=== PATIENT | male | born 1965 | race Caucasian/White ===

== ENCOUNTER 2020-02-06 09:30 | Inpatient (IN) | payer MEDICAID, SELFPAY ==
[~2020-02-06] VITALS: Ht 165.1 cm; Wt 89.8 kg
--- NOTE | 2020-02-06 09:35 | NUR ---
PATIENT WHEELCHAIR ASSISTED TO BED 1 AT THIS TIME.
[2020-02-06 09:36] VITALS: BP 83/50
[2020-02-06] MEDS ORDERED: NACL 0.9% 1,000 ML IV ONE (10:15)
--- NOTE | 2020-02-06 10:19 | NUR ---
54 Y/O MALE C/O DIZZINESS X20 DAYS + DIARRHEA + COUGH + LOSS OF TASTE/SMELL. PT DENIES ANY SOB/CP. RESP EVEN AND UNLABORED, LUNG SOUNDS CLEAR. PT IS DIAPHORETIC, BUT DENIES ANY FEVER/ CHILLS. SKIN IS MILDLY PALE, IN TACT, MOIST. SCLERA IS SLIGHTLY YELLOW, PERRLA 3MM. PT IS TACHY AND APPEARS TO BE A FIB. AMBULATORY. AAOX4. GCS 15. PMH HTN NKA
--- NOTE | 2020-02-06 10:37 | NUR ---
COVID, RSV, FLU SWAB DONE AT BEDSIDE AND GIVEN TO SOAPING MACHINE BACK TENDER
[2020-02-06 10:45] LABS: HEMATOCRIT 45.6 % (36-52); HEMOGLOBIN 15.3 g/dL (12.0-18.0); MEAN CORPUSCULAR HEMOGLOBIN 29 pg (27-31); MEAN CORPUSCULAR HGB CONC 34 g/dL (33-37); MEAN CORPUSCULAR VOLUME 87.5 fL (80-94); PLATELET COUNT (AUTO) 50 K/uL (140-450); RED BLOOD CELL COUNT(AUTO) 5.21 MIL/uL (4.20-6.10); RED CELL DISTRIBUTION WIDTH 15.1 % (11.6-13.7)
[2020-02-06 10:49] LABS: WHITE BLOOD COUNT (AUTO) 34.5 K/uL (4.8-10.8)
--- NOTE | 2020-02-06 10:49 | NUR ---
WBC 34.5-- Critical value received from lab. Dr Montanez made aware
[2020-02-06 10:52] LABS: RSV NEGATIVE (NEGATIVE)
[2020-02-06 10:57] LABS: PROTHROMBIN TIME 12.9 secs (10.8-13.4)
[2020-02-06 11:01] LABS: ALBUMIN 1.7 g/dL (3.4-5.0); ANION GAP 15.4 (8-16); CARBON DIOXIDE 26.8 mmol/L (21-32); TOTAL BILIRUBIN 4.6 mg/dL (0.0-1.0)
[2020-02-06 11:03] LABS: LACTATE DEHYDROGENASE 215 U/L (85-227); LIPASE 743 U/L (73-393)
[2020-02-06 11:06] LABS: CREATININE 4.3 mg/dL (0.6-1.3); POTASSIUM 2.2 mmol/L (3.5-5.1)
--- NOTE | 2020-02-06 11:09 | NUR ---
Potassium 2.2, Creatinine 4.3, Lactic acid 2.3-- Critical values received from lab. Dr Montanez made aware
[2020-02-06 11:23] LABS: LYMPHOCYTES % (MANUAL) 5 % (20-46); MONOCYTES % (MANUAL) 4 % (5-12)
[2020-02-06] MEDS ORDERED: MAG SULF 2000 MG/WATER PREMIX 50 ML IV ONE (11:30)
[2020-02-06] MEDS ORDERED: KCL 20 MEQ/WATER INJ PREMIX 100 ML IV ONE (11:30)
[2020-02-06] MEDS ORDERED: PIPERACILLIN/TAZOBACTAM 3.375 GM in DEXTROSE 5% 50 ML IV ONE (11:30)
--- NOTE | 2020-02-06 11:34 | NUR ---
Troponin 0.132-- Critical value received from lab. Dr Montanez made aware
[2020-02-06 11:41] LABS: C-REACTIVE PROTEIN QUANT 27.2 mg/dL (0.0-0.9)
[2020-02-06] MEDS ORDERED: NITROGLYCERIN 0.4 MG TAB SL PRN (11:45)
[2020-02-06] MEDS ORDERED: ALBUTEROL HFA MDI 90 MCG/ACTUATION 8 GM INH PRN (11:45)
[2020-02-06] MEDS ORDERED: lisinopriL 5 MG TAB PO SCH (11:45)
[2020-02-06] MEDS ORDERED: NACL 0.9% 2,000 ML IV SCH (11:45)
[2020-02-06] MEDS ORDERED: ZOLPIDEM 5 MG TAB PO PRN (11:45)
[2020-02-06] MEDS ORDERED: DOCUSATE 100 MG/10 ML UDC PO PRN (11:45)
[2020-02-06] MEDS ORDERED: MORPHINE SULFATE 2 MG/ML SYR IVP PRN (11:45)
[2020-02-06] MEDS ORDERED: ONDANSETRON 4 MG/2 ML VIAL IM/IVP PRN (11:45)
[2020-02-06] MEDS ORDERED: MAG SULF 2000 MG/WATER PREMIX 50 ML IV PRN (11:45)
[2020-02-06] MEDS ORDERED: LORazepam 2 MG/ML VIAL IM/IVP PRN (11:45)
[2020-02-06] MEDS ORDERED: PIPERACILLIN/TAZOBACTAM 3.375 GM VIAL IV ONE (11:55)
--- NOTE | 2020-02-06 12:07 | NUR ---
AAOX4, PT LETHARGIC BUT EASILY AROUSABLE. DIAPHORETIC. VSS.
[2020-02-06 12:27] LABS: MAGNESIUM 2.7 mg/dL (1.8-2.4); PHOSPHORUS 1.3 mg/dL (2.5-4.9); THYROID STIMULATING HORMONE 0.95 uIU/mL (0.34-3.74)
[2020-02-06 12:34] LABS: CHOL/HDL RATIO 12.8 (1-4.5)
[2020-02-06 12:47] LABS: APPEARANCE,URINE CLOUDY (CLEAR); BILIRUBIN,URINE 3+ (NEGATIVE); BLOOD, URINE TRACE-L (NEGATIVE); COLOR,URINE BROWN (YELLOW); LEUKOCYTE ESTERASE ,URINE TRACE (NEGATIVE); NITRITE, URINE POSITIVE (NEGATIVE); UGLUCOSE TRACE (NEGATIVE)
[2020-02-06] MEDS ORDERED: KCL 20 MEQ/WATER INJ PREMIX 200 ML IV SCH (13:00)
[2020-02-06 13:10] VITALS: BP 110/79
--- NOTE | 2020-02-06 13:10 | NUR ---
Received report from Jesus BEY. 54/M arrives to ICU from home, with chief complaint of dizziness/weakness/fatigue, loss of taste and smell, diarrhea, SOB, and cough, x10 days. Pt denies fever/chills, CP or any pain at this time. Pt awake and alert, skin moist/diaphoretic and warm, ambulatory with standby/1person assist, Spo2 98% on 4L NC, RR 28 even and tachypnic with no labored breathing. Lung sounds with mild wheeze anteriorly. BP 110/79, HR 110, A.fib on monitor, S1S2 present, no BLE edema.
[2020-02-06 13:11] LABS: BARBITURATE, URINE NEGATIVE ng/ml (NEG <=200); BENZODIAZEPINE, URINE NEGATIVE ng/mL (NEG <=200); CANNABINOID, URINE NEGATIVE ng/mL (NEG <=50); COCAINE, URINE NEGATIVE ng/mL (NEG <=300); OPIATE, URINE NEGATIVE ng/mL (NEG <=2000); PHENCYCLIDINE SCREEN,URINE NEGATIVE ng/mL (NEG <=25)
--- NOTE | 2020-02-06 13:17 | NUR ---
Patient will be admitted to care of MAGALY. Admited to ICU. Will go to room 7. Belongings list completed. Report to YVONNE BEY.
[2020-02-06 13:35] LABS: RBC,URINE 0-5 /HPF (0-5)
[2020-02-06 13:36] LABS: HYALINE CASTS, URINE 0-10 /LPF (None Seen)
--- NOTE | 2020-02-06 13:41 | NUR ---
Called Dr Bruno, gave report, notified to consult.
[2020-02-06] MEDS: NACL 0.9% 1,000 ML IV SCH ×2 (13:58→22:00)
[2020-02-06] MEDS: ASPIRIN 81 MG TAB.CHEW PO SCH (13:58)
[2020-02-06] MEDS: METOPROLOL 25 MG TAB PO SCH ×2 (13:58→21:00)
[2020-02-06 16:00] VITALS: BP 111/57
--- NOTE | 2020-02-06 16:30 | NUR ---
Pt laying in bed, pt able to turn self on R lateral position, able to move all extremities. Pt sleeping, arousable to name, awake and alert, no facial grimacing/restlessness, denies any pain. Reports tolerable SOB with no acute change, Spo2 97% on 2L NC, RR 16 even and unlabored, skin dry. A.fib on monitor, HR 99-110. All needs met.
--- NOTE | 2020-02-06 17:59 | NUR ---
Called report to associate professor of pathology, pt to be transferred to 124A Addendum: 02/06/20 at 0334 by Demetri Best RN entered in error
[2020-02-06 18:00] VITALS: BP 102/53
--- NOTE | 2020-02-06 18:52 | NUR ---
Dr Bruno at bedside for consult. Per Dr Bruno, verbal order to discontinue scheduled lisinopril PO.
[2020-02-06 19:11] LABS: CREATININE 4.9 mg/dL (0.6-1.3)
--- NOTE | 2020-02-06 19:35 | NUR ---
[facility] AWAKE AND ALERT EYES PERRLA 3 MM, PT ON 2L NASAL CANNULA, LUNG SOUNDS CLEAR, PT COMPLAINING OF MODERATE PAIN, PULSES PALPABLE UPPER AND LOWER EXTREMITIES, BOWEL SOUNDS ACTIVE, PT ABLE TO MOVE AND TURN SELF IN BED, NO SIGNS OF DISTRESS SAFETY PROTOCOLS IN PLACE WILL CONTINUE TO MONITOR PT
[2020-02-06 20:00] VITALS: BP 107/69
[2020-02-06] MEDS: ZINC SULF 220 MG CAP PO SCH (20:31)
[2020-02-06] MEDS: ATORVASTATIN 20 MG TAB PO SCH (20:31)
[2020-02-06] MEDS: HYDROcodone/APAP 5/325 MG 1 TAB TAB PO PRN (20:32)
[2020-02-06] MEDS: PIPERACILLIN/TAZOBACTAM 2.25 GM in DEXTROSE 5% 50 ML IV SCH (20:49)
[2020-02-06] MEDS ORDERED: LOVENOX 1MG/KG Q12H SUBQ SCH (21:00)
[2020-02-06] MEDS ORDERED: MECLIZINE 25 MG TAB PO PRN (21:55)
[2020-02-06 22:00] VITALS: BP 97/51
[2020-02-07] VITALS (12 sets, daily range): BP systolic 96–118; BP diastolic 50–79
--- NOTE | 2020-02-07 02:00 | NUR ---
PT RESTING IN BED NO SIGNS OF DISTRESS NOTED WILL CONTINUE TO MONITOR PT
[2020-02-07] MEDS: PIPERACILLIN/TAZOBACTAM 2.25 GM in DEXTROSE 5% 50 ML IV SCH ×2 (05:45→13:34)
--- NOTE | 2020-02-07 05:45 | NUR ---
PT TAKEN TO XRAY FOR CT OF HEAD, NO EVENTS OCCURRED, NO SIGN OF DISTRESS WILL CONTINUE TO MONITOR
[2020-02-07 06:17] LABS: HEPATITIS A ANTIBODY IGM Negative (Negative); HEPATITIS B CORE AB TOTAL Negative (Negative); HEPATITIS B SURFACE ANTIBODY Non Reactive (.); HEPATITIS B SURFACE ANTIGEN Negative (Negative)
[2020-02-07 06:20] LABS: RED BLOOD CELL COUNT(AUTO) 4.94 MIL/uL (4.20-6.10)
[2020-02-07 06:50] LABS: ALBUMIN 1.4 g/dL (3.4-5.0); ANION GAP 18.9 (8-16); MAGNESIUM 3.4 mg/dL (1.8-2.4); PHOSPHORUS 1.7 mg/dL (2.5-4.9); TOTAL BILIRUBIN 3.6 mg/dL (0.0-1.0)
[2020-02-07 07:09] LABS: HEMATOCRIT 44.3 % (36-52); HEMOGLOBIN 14.6 g/dL (12.0-18.0); MEAN CORPUSCULAR HEMOGLOBIN 29 pg (27-31); MEAN CORPUSCULAR HGB CONC 33 g/dL (33-37); MEAN CORPUSCULAR VOLUME 89.7 fL (80-94); PLATELET COUNT (AUTO) 62 K/uL (140-450); RED CELL DISTRIBUTION WIDTH 15.9 % (11.6-13.7)
[2020-02-07 07:12] LABS: T4 (THYROXINE) 4.6 ug/dL (4.5-12.0)
--- NOTE | 2020-02-07 07:30 | NUR ---
BEDSIDE REPORT RECEIVED FROM MEAT DRESSER NURSE, PT RESTING QUIETLY, PT OPENS EYES TO VOICE, ALERT, MONGOLIAN SPEAKING, MOVES ALL EXT, BREATH SOUNDS CLEAR, RESP EVEN UNLABORED, SKIN WARM DRY COLOR WNL, PT DENIES PAIN OR DISCOMFORT, ABD SOFT, NON DISTENDED, [place] IN PLACE, SMALL AMT OF DARK URINE IN TUBING ONLY, IVF NS AT 100ML/HR, IV SITES WNL. CALL LUI WITHIN REACH, SIDE RAIL UP, BED LOCKED IN LOW POSITION, VITALS STABLE ON MONIOR
--- NOTE | 2020-02-07 07:42 | NUR ---
DR HALL AT BEDSIDE, NOTIFIED OF LOW K 2.9, BUN/BALLOON DESIGN PRINTER 77/5.5, NON SUSTAINED V-TACH.
[2020-02-07] MEDS: NACL 0.9% 1,000 ML IV SCH ×2 (07:43→17:49)
[2020-02-07 07:47] LABS: CREATININE 5.5 mg/dL (0.6-1.3); POTASSIUM 2.9 mmol/L (3.5-5.1)
[2020-02-07] MEDS: ASPIRIN 81 MG TAB.CHEW PO SCH (08:35)
[2020-02-07] MEDS: ZINC SULF 220 MG CAP PO SCH ×2 (08:35→21:36)
[2020-02-07] MEDS: VITAMIN D 400 IU TAB PO SCH (08:36)
[2020-02-07] MEDS: POTASSIUM CHLORIDE 10 MEQ TABER PO PRN (08:36)
[2020-02-07] MEDS: METOPROLOL 25 MG TAB PO SCH ×2 (08:36→21:15)
[2020-02-07] MEDS: ASCORBIC ACID 500 MG TAB PO SCH (08:36)
[2020-02-07 08:53] LABS: WHITE BLOOD COUNT (AUTO) 31.9 K/uL (4.8-10.8)
[2020-02-07 08:54] LABS: EOSINOPHILS % (MANUAL) 3 % (0-4); LYMPHOCYTES % (MANUAL) 9 % (20-46); MONOCYTES % (MANUAL) 5 % (5-12)
--- NOTE | 2020-02-07 08:58 | NUR ---
PATIENT HAS BEEN SCREENED AND CATEGORIZED HIGH NUTRITION RISK. PATIENT WILL BE SEEN WITHIN 1-2 DAYS OF ADMISSION. 02/07/20-02/08/[address]
[2020-02-07] MEDS: HYDROcodone/APAP 5/325 MG 1 TAB TAB PO PRN (09:16)
--- NOTE | 2020-02-07 09:23 | NUR ---
MEDICATED WITH NORCO FOR RIGHT LEG PAIN 02/10, PHYSICAL THERAPY AT BEDSIDE
--- NOTE | 2020-02-07 09:30 | NUR ---
0930 ULTRASOUND AT BEDSIDE.
[2020-02-07] MEDS ORDERED: POTASSIUM CHLORIDE 40 MEQ, LIDOCAINE MPF 1% 25 MG in NACL 0.9% 250 ML IV SCH (10:00)
--- NOTE | 2020-02-07 10:53 | NUR ---
ARMAMENT INSTALLER NOTE: Patient's Orientation Unable To Assess Information Provided By AMY VILLELA Comments SW WAS UNABLE TO MEET PATIENT AT BEDSIDE DUE TO MEDICAL CONDITION. Trial Management Associate, Realtionship and Phone Number AMY VILLELA [phone] Healthcare Power of Drafting Technician No Does Patient Have a POLST No Identifying Problems No Social Work Triggers Is A Social Work Consult Needed No Mandate Report Filed No Explanation Of Identifying Problems PATIENT IS A 54-YEAR-OLD MALE ADMITTED FOR COVID R/O AND SEPTIC SHOCK. PATIENT HAS PMHX OF HTN AND HEPATITIS. Admitted From Home Pre-Admission Level Of Functioning Status Independent/Ambulatory Prior Resources/Services Used In Last 12 Months No Prior Resources Used Prior DME No Prior DME Used Living Situation Lives With Family House Patient Had Caregiver No Home Support No Caregiver Issues Financial Issues No Known Financial Issue Referral To The Financial Counselor Needed No Factors/Needs No D/C Needs Identified Pt/Rep Participated In Discharge Plan Yes Patient/Family Agress With Discharge Plan Yes Discharge Plan Comments TENTATIVE DISCHARGE PLAN IS FOR PATIENT TO RETURN HOME. DC Plan Status Initiated
[2020-02-07 11:48] LABS: CHLORIDE,URINE RANDOM 41 mmol/L (110-250); CREATININE,URINE RANDOM 195 mg/dL (30-125); URINE SODIUM, RANDOM 39 mmol/l (40-220)
--- NOTE | 2020-02-07 11:51 | NUR ---
PT SLEEPING QUIETLY IN NO ACUTE DISTRESS, PT CONTINUES ON 2L NC O2.
--- NOTE | 2020-02-07 14:56 | NUR ---
DISCHARGE PLANNING: THIS IS A 54 Y/O MALE PATIENT FROM HOME, WHO CAME IN DUE TO SOB, WEAKNESS AND DIZZINESS. PAST MEDICAL HISTORY INCLUDE HTN, HEP A/B/C. INITIAL DIAGNOSIS OF SEPTIC SHOCK AND R/O COVID. COVID TEST PENDING. CURRENT LABS WBC 31.9, H/H 14.6/44.3, NA/K 138/2.9, BUN/CREA 77/5.5, LACTIC ACID 1.0, TROP 0.070. ON O2 AT 2 LPM/NC, O2 SAT 95%. ON METRONIDAZOLE, CEFEPIME. ID, CARDIO, PULMO AND NEPHRO CONSULTS IN PLACE. DC PLAN BACK TO HOME ONCE STABLE. Addendum: 02/08/20 at 1625 by Eusebia Porter CM S/P RIJ DIALYSIS CATHETER PLACEMENT WITH DR. NAPIER. HAD X4 LOOSE BM OVERNIGHT, STOOL SAMPLE SENT FOR C DIFF AND SHIGA TOXIN RESULTS CAME BACK NEGATIVE. ON ROOM AIR Addendum: 02/12/20 at 1515 by Harmony Baires CM DC PLANNING: CALLED DR DAVENPORT DISCUSSED IF PATIENT NEED OUT PATIENT DIALYSIS PER DR DAVENPORT TO SCHEDULE OUT PATIENT HD AT [facility] AT [address] PHONE NUMBER [phone] FAX [phone] WILL FAX ALL PAPER WORK. CM TO FOLLOW. Addendum: 02/12/20 at 1529 by Martine Herr CM FAXED PATIENTS CLINICALS TO [facility] [phone] FAX [phone] WILL FOLLOW UP Addendum: 02/13/20 at 1147 by Harmony Baires CM DC PLANNING: CALLED [facility] [phone] SPOKE WITH WILLIAN STATED RECEIVED PT'S PAPERWORK YESTERDAY GAVE IT TO THE PHLEBOTOMY SERVICES TECHNICIAN FOR OUT PT DIALYSIS WILL REVIEW AND CALL BACK CM TO FOLLOW Addendum: 02/13/20 at 1458 by Harmony Baires CM DC PLANNING: CALLED [facility] AT [facility] OUT PATIENT DIALYSIS CENTER SPOKE WITH WILLIAN PT HAS SCHEDULE CHAIR TIME WILL BE 4 AM BUT PLS CALL WILLIAN AT [phone] PRIOR TO DISCHARGE, FOR A FIST TIME VISIT THERE WILL BE DIFFERENT TIME. CM TO FOLLOW Addendum: 02/14/20 at 1507 by Harmony Baires CM DC PLANNING: WBC ELEVATED TO 25.3 TODAY ON VANCOMYCIN. DIALYSIS CATHETER REPLACE BY DR POMPA , OUT PATIENT DIALYSIS SET UP FOR CHAIR TIME AT 4AM AT [facility]. DC PLAN TO GO HOME WHEN STABLE CM TO FOLLOW. Addendum: 02/15/20 at 1142 by Martine Herr CM CONTACTED [facility] [phone] SHE WAS NOT IN AT THE MOMENT SPOKE TO NOEMI TO NOTIFY THAT PATIENT IS NOT READY FOR DISCHARGE YET. ASKED NOEMI IF HE COULD HAVE T[facility] CALL US BACK. Addendum: 02/15/20 at 1534 by Harmony Baires CM DC PLANNING: CALLED WILLIAN AT [facility] [phone] NOTIFIED HER PATIENT IS NOT DISCHARGING TODAY , HE MIGHT BE DISCHARGE ON THE WEEKEND. PER [facility] IS CLOSED TUE,TUESDAY TO CALL TUESDAY. CM TO FOLLOW Addendum: 02/18/20 at 1110 by Martine Herr CM CONTACTED TAMEKA AT [facility] [phone] TO NOTIFY HER PATIENT WILL BE DISCHARGING TODAY. PATIENT HAS DIALYSIS M-W-F AT 4:00 AM. SHE IS GOING TO CONTACT ME BACK WITHIN 10 MINS BECAUSE SHE WANTS TO CLARIFY WITH HER ALLIGATOR HUNTER IF THEY WANT THIS PATIENT TO COME IN LATER ON THE FIRST DAY. Addendum: 02/18/20 at 1358 by Martine Herr CM FOLLOWED UP WITH WILLIAN AT [facility] SHE WANTS THE PATIENT TO COME IN ON TUESDAY AT 8:00AM. NOTIFIED PATIENTS AMY REYES [phone]. AMY STATED THAT THEY WILL BE HERE AROUND 3:00 PM TO VOICE OVER ARTIST THE PATIENT. NOTIFIED MAIDA SANCHEZ
--- NOTE | 2020-02-07 15:00 | NUR ---
DR NIETO AT BEDSIDE
--- NOTE | 2020-02-07 15:20 | NUR ---
PT STARTED ORAL CONTRAST FOR CT ABD/PELVIS, ACLS SPECIALIST MADE AWARE
[2020-02-07] MEDS: CEFEPIME 1,000 MG in DEXTROSE 5% 50 ML IV SCH (16:00)
--- NOTE | 2020-02-07 18:15 | NUR ---
PT PLACED ON BEDPAN, LARGE LOOSE STOOL, MISSED BEDPAN, ALL OVER THE CHUX, PERICARE DONE, BEDBATH GIVEN, STOOL SAMPLE COLLECTED SENT TO LAB
--- NOTE | 2020-02-07 19:35 | NUR ---
RECEIVED PT FROM DAYSHIFT RN, PT AWAKE RESTING IN BED EYES PERRLA 3MM, LUNG SOUNDS CLEAR, PULSES PALPABLE UPPER AND LOWER EXTREMITIES, BOWEL SOUNDS ACTIVE, PT FOLLOWS COMMANDS, SLIGHT HESITATION ANSWERING QUESTIONS SUCH DATE OF , NO SIGNS OF DISTRESS WILL CONTINUE TO MONITOR PT
--- NOTE | 2020-02-07 21:30 | NUR ---
PT HAD 1 LIQUID BM DARK BROWN COLOR, ASSISTED PT TO COMMODE AND BACK TO BED PT NO RESTING IN BED, WILL CONTINUE TO MONITOR PT
[2020-02-07] MEDS: metroNIDAZOLE 500 MG/NS PREMIX 100 ML IV SCH (21:36)
[2020-02-07] MEDS: ATORVASTATIN 20 MG TAB PO SCH (21:36)
[2020-02-07 21:51] LABS: ANION GAP 19.8 (8-16); CARBON DIOXIDE 20.1 mmol/L (21-32); POTASSIUM 3.9 mmol/L (3.5-5.1)
[2020-02-07 21:54] LABS: CREATININE 6.5 mg/dL (0.6-1.3)
--- NOTE | 2020-02-07 22:43 | NUR ---
SPOKE WITH DR. ALLISON INFORMED OF ELEVATED BUN 107 AND CREATINE 6.5,DR. POMPA ON CONSULT FOR PT INFORMED TO PG DR. POMPA AND INFORM OF NEED FOR INSERTION OF DIALYSIS PORT, SPOKE WITH DR. POMPA AND INFORMED HIM PT NEEDS CATHETER IN PLACE FOR DIALYSIS
[2020-02-08] VITALS (12 sets, daily range): BP systolic 93–139; BP diastolic 39–88
--- NOTE | 2020-02-08 03:45 | NUR ---
PT HAD 1 LIQUID BROWN BM ASSIST TO COMMODE NO SIGNS OF DISTRESS WILL CONTINUE TO MONITOR PT
[2020-02-08] MEDS: NACL 0.9% 1,000 ML IV SCH ×2 (04:00→13:43)
[2020-02-08 06:39] LABS: HEMATOCRIT 43.2 % (36-52); HEMOGLOBIN 14.4 g/dL (12.0-18.0); MEAN CORPUSCULAR HEMOGLOBIN 30 pg (27-31); MEAN CORPUSCULAR HGB CONC 33 g/dL (33-37); MEAN CORPUSCULAR VOLUME 88.9 fL (80-94); PLATELET COUNT (AUTO) 58 K/uL (140-450); RED BLOOD CELL COUNT(AUTO) 4.86 MIL/uL (4.20-6.10); RED CELL DISTRIBUTION WIDTH 16.1 % (11.6-13.7)
--- NOTE | 2020-02-08 07:15 | NUR ---
SKYE CATH INSERTED BY DR. NAPIER.
--- NOTE | 2020-02-08 07:45 | NUR ---
CHEST X-RAY DONE
[2020-02-08 07:49] LABS: ALBUMIN 1.5 g/dL (3.4-5.0); ANION GAP 20.2 (8-16); CARBON DIOXIDE 18.6 mmol/L (21-32); MAGNESIUM 3.8 mg/dL (1.8-2.4); PHOSPHORUS 2.6 mg/dL (2.5-4.9); POTASSIUM 3.8 mmol/L (3.5-5.1); TOTAL BILIRUBIN 1.4 mg/dL (0.0-1.0)
[2020-02-08 07:56] LABS: WHITE BLOOD COUNT (AUTO) 27.1 K/uL (4.8-10.8)
[2020-02-08 07:57] LABS: LYMPHOCYTES % (MANUAL) 5 % (20-46); MONOCYTES % (MANUAL) 5 % (5-12)
[2020-02-08] MEDS: METOPROLOL 25 MG TAB PO SCH ×2 (08:36→20:24)
[2020-02-08] MEDS: ZINC SULF 220 MG CAP PO SCH ×2 (08:37→20:23)
[2020-02-08] MEDS: ASCORBIC ACID 500 MG TAB PO SCH (08:37)
[2020-02-08] MEDS: ASPIRIN 81 MG TAB.CHEW PO SCH (08:37)
[2020-02-08] MEDS: metroNIDAZOLE 500 MG/NS PREMIX 100 ML IV SCH ×2 (08:38→20:23)
[2020-02-08] MEDS: VITAMIN D 400 IU TAB PO SCH (09:00)
[2020-02-08 09:04] LABS: CREATININE 7.1 mg/dL (0.6-1.3)
--- NOTE | 2020-02-08 10:00 | NUR ---
DR. NAPIER SAID SKYE BRIDGES IS OK TO USE.
--- NOTE | 2020-02-08 12:00 | NUR ---
SEEN BY DR ALEXANDER AT BED SIDE , ORDER RECEIVED.
--- NOTE | 2020-02-08 12:00 | NUR ---
OBTAIN PICC LINE CONSENT FROM LINWOOD WERNER [phone] BYINTERPRETER #[id number].
[2020-02-08] MEDS: ACETAMINOPHEN 325 MG TAB PO PRN (12:41)
--- NOTE | 2020-02-08 14:00 | NUR ---
OBTAIN CONTRASS ADM. FROM SISTER LINWOOD [[phone]] BY HIGH SCHOOL COACH #[id number].
[2020-02-08] MEDS: CEFEPIME 1,000 MG in DEXTROSE 5% 50 ML IV SCH (15:27)
--- NOTE | 2020-02-08 16:01 | NUR ---
02/08/20 RD INITIAL ASSESSMENT COMPLETED PLEASE REFER TO NUTRITION ASSESSMENT UNDER CARE ACTIVITY FOR ESTIMATED NUTRITIONAL NEEDS. 1. CONTINUE NPO MEDICALLY NECESSARY 2. ADVANCE TO [facility] 60GM WHEN MEDICALLY STABLE 3. RD TO FOLLOW-UP 2-3 DAYS, HIGH RISK ROLAN VILLAGRAN, RD
--- NOTE | 2020-02-08 16:30 | NUR ---
PATIEN SLEEPING QUIET MOST OF THE TIME.DENIED PAIN.
--- NOTE | 2020-02-08 18:00 | NUR ---
STILL SLEEPY NO DISTRESS NOTED.
--- NOTE | 2020-02-08 19:30 | NUR ---
REPORT RECEIVED FROM AM SHIFT RN. PT IS CONFUSED. A&OX1. ON ROOM AIR. O2 SATURATION 96%. AFIB ON MONITOR. IV SITE RIJ SKYE CATH W/ PIGTAIL RUNNING AT NS 100ML/HR, INTACT, PATENT, GOOD BLOOD RETURN. SKIN INTACT, WARM AND DRY. [place] CATHETER IN PLACE. SAFETY PRECAUTIONS IN PLACE. WILL CONTINUE TO MONITOR.
--- NOTE | 2020-02-08 19:30 | NUR ---
CONDITION STABLE REPORT GIVE TO MONTSERRAT BEY,
[2020-02-08] MEDS: ATORVASTATIN 20 MG TAB PO SCH (20:23)
[2020-02-08] MEDS ORDERED: CRUSHER, PILL MC ONE (20:25)
--- NOTE | 2020-02-08 21:15 | NUR ---
PT HAD 1 BM, SAT ON COMMODE.
--- NOTE | 2020-02-08 23:05 | NUR ---
PT RESTING IN BED, EYES CLOSED, RESPIRATIONS EVEN AND UNLABORED. SAFETY PRECAUTIONS IN PLACE. WILL CONTINUE TO MONITOR.
[2020-02-09] VITALS (13 sets, daily range): BP systolic 115–145; BP diastolic 65–94
--- NOTE | 2020-02-09 01:20 | NUR ---
PT RESTING IN BED, RESPIRATIONS EVEN AND UNLABORED. CHEST RISE IS SYMMETRICAL. VITAL SIGNS STABLE. SAFETY PRECAUTIONS IN PLACE. WILL CONTINUE TO MONITOR.
[2020-02-09] MEDS: NACL 0.9% 1,000 ML IV SCH ×2 (01:26→09:43)
--- NOTE | 2020-02-09 03:50 | NUR ---
PT RESTING IN BED, EYES CLOSED, RESPIRATIONS EVEN AND UNLABORED. HOB 30 DEGREES. BED LOCKED IN LOWEST POSITION. SAFETY PRECAUTIONS IN PLACE. WILL CONTINUE TO MONITOR.
--- NOTE | 2020-02-09 05:50 | NUR ---
PT HAD 1 LOOSE BM. PT CLEANED. WILL CONTINUE TO MONITOR.
--- NOTE | 2020-02-09 06:23 | NUR ---
FOLLOW UP CALL MADE TO PICCLINE NURSE, LEAVE MESSAGE
--- NOTE | 2020-02-09 07:26 | NUR ---
REPORT GIVEN TO STACIE BEY FOR CONTINUITY OF CARE
[2020-02-09 07:50] LABS: BASOPHILS % (AUTO) 0.1 % (0.0-2.0); EOSINOPHILS # (AUTO) 0.1 K/uL (0-0.4); EOSINOPHILS % (AUTO) 0.3 % (0.0-4.0); HEMATOCRIT 45.4 % (36-52); HEMOGLOBIN 15.1 g/dL (12.0-18.0); LYMPHOCYTES % (AUTO) 3.5 % (20.5-51.1); MEAN CORPUSCULAR HEMOGLOBIN 30 pg (27-31); MEAN CORPUSCULAR HGB CONC 33 g/dL (33-37); MEAN CORPUSCULAR VOLUME 89.1 fL (80-94); MONOCYTES # (AUTO) 0.6 K/uL (0.8-1.0); NEUTROPHILS # (AUTO) 26.1 K/uL (1.8-7.7); NEUTROPHILS % (AUTO) 94.1 % (42.2-75.2); PLATELET COUNT (AUTO) 31 K/uL (140-450)
[2020-02-09] MEDS: ASPIRIN 81 MG TAB.CHEW PO SCH (07:58)
--- NOTE | 2020-02-09 08:00 | NUR ---
REPORT RECEIVED FROM PM SHIFT RN. PT ZIMBABWEAN SPEAKING. CUSTOMER SUPPORT CONSULTANT USED. PT ALERT TO SELF AND BIRTHDAY. PT IS AWARE THAT HE IS IN HOSPITAL. PT ON ROOM AIR. O2 SATURATION 96%. AFIB ON MONITOR. IV SITE RIJ SKYE CATH W/ PIGTAIL RUNNING AT NS 100ML/HR, INTACT, PATENT, GOOD BLOOD RETURN. SKIN INTACT, WARM AND DRY. [place] CATHETER IN PLACE, YELLOW URINE. PT NPO. SAFETY PRECAUTIONS IN PLACE. COVID RESULT NOT DETECTED. PT PENDING PICC LINE PLACEMENT.
[2020-02-09] MEDS: metroNIDAZOLE 500 MG/NS PREMIX 100 ML IV SCH ×2 (08:10→20:40)
--- NOTE | 2020-02-09 08:15 | NUR ---
HOLDING HEPARIN AND ASPIRIN AT THIS TIME DUE TO PTS LOW PLATELET COUNT
[2020-02-09 08:34] LABS: MAGNESIUM 3.6 mg/dL (1.8-2.4)
[2020-02-09 08:36] LABS: WHITE BLOOD COUNT (AUTO) 27.8 K/uL (4.8-10.8)
--- NOTE | 2020-02-09 08:40 | NUR ---
USED SPECIAL POPULATION PARAPROFESSIONAL [id number] TO ADMINISTER MORNING MEDICATIONS. PT DENIES PAIN. PT HAS NO FURTHER QUESTIONS AT THIS TIME.
[2020-02-09] MEDS: ZINC SULF 220 MG CAP PO SCH ×2 (08:45→20:41)
[2020-02-09] MEDS: METOPROLOL 25 MG TAB PO SCH ×2 (08:45→20:41)
[2020-02-09] MEDS: VITAMIN D 400 IU TAB PO SCH (08:45)
[2020-02-09] MEDS: ASCORBIC ACID 500 MG TAB PO SCH (08:45)
--- NOTE | 2020-02-09 09:00 | NUR ---
DR DOE SIGNED CONSENT FOR CT WITH CONTRAST, OBTAINED CONSENT FROM AMY MORENO VIA TELEPHONE-2 NURSE WITNESSED
[2020-02-09 09:59] LABS: ALBUMIN 1.7 g/dL (3.4-5.0); ANION GAP 24.9 (8-16); CARBON DIOXIDE 16.7 mmol/L (21-32); MAGNESIUM 3.7 mg/dL (1.8-2.4); POTASSIUM 3.6 mmol/L (3.5-5.1); TOTAL BILIRUBIN 1.1 mg/dL (0.0-1.0)
[2020-02-09 10:00] LABS: CREATININE 8.3 mg/dL (0.6-1.3)
--- NOTE | 2020-02-09 10:05 | NUR ---
PAGED DR LAWRENCE REGARDING CRITICAL LABS BUN 169 AND CR 8.3
--- NOTE | 2020-02-09 10:37 | NUR ---
TELEPHONE ORDER FROM DR MCINTYRE TO CONTINUE WITH PICC LINE PLACEMENT FOR PT DESPITE BUN,CR, AND PLATELET COUNT
--- NOTE | 2020-02-09 12:15 | NUR ---
SANDRA RN AT BEDSIDE FOR PICC LINE PLACEMENT, TIME OUT CALLED
--- NOTE | 2020-02-09 12:25 | NUR ---
RADIOLOGY AT BEDSIDE TO CONFIRM PICC PLACEMENT
--- NOTE | 2020-02-09 15:00 | NUR ---
PT ASSISTED TO BEDSIDE COMMODE. PT HAS DARK COLORED DIARRHEA, BROWN EDINSON BLACK
--- NOTE | 2020-02-09 15:42 | NUR ---
ZANA RN WITH PT AT CT ANGIO SCAN
--- NOTE | 2020-02-09 16:33 | NUR ---
CASE ASSISTANT AT BEDSIDE, PT MOVED TO BED 5
--- NOTE | 2020-02-09 16:59 | NUR ---
VERBAL ORDER TO HOLD NS
[2020-02-09] MEDS: CEFEPIME 1,000 MG in DEXTROSE 5% 50 ML IV SCH (17:00)
--- NOTE | 2020-02-09 18:31 | NUR ---
2L OUPUT FROM DIALYSIS. PER QUALITY ASSURANCE ADVISOR-PTS HEMODIALYSIS SITE IS NOT WORKING PROPERLY. DR MCINTYRE MADE AWARE BY QUALITY ASSURANCE ADVISOR
--- NOTE | 2020-02-09 19:30 | NUR ---
REPORT RECEIVED FROM AM SHIFT RN. PT A&OX4. PICC LINE RADHA, INFUSING NS 5 ML/HR AND RIJ SKYE CATH W/ PIGTAIL, SALINE LOCKED. AFIB ON MONITOR. ON ROOM AIR. SKIN INTACT, WARM AND DRY. SAFETY PRECAUTIONS IN PLACE. CALL LIGHT WITHIN REACH. WILL CONTINUE TO MONITOR.
[2020-02-09] MEDS: ATORVASTATIN 20 MG TAB PO SCH (20:40)
--- NOTE | 2020-02-09 21:00 | NUR ---
PT HAD 1 LOOSE BOWEL MOVEMENT. PT CLEANED.
--- NOTE | 2020-02-09 22:30 | NUR ---
PT TRANSFERRED TO TELEMETRY 112B VIA [facility]. REPORT GIVEN TO PAUL BEY FOR CONTINUITY OF CARE.
--- NOTE | 2020-02-09 22:30 | NUR ---
PT ARRIVED FROM ICU TO [facility] VIA GURNEY. RECEIVED BEDSIDE REPORT FROM ICU NURSE ROSHNI. PT IS AWAKE, ALERT, ORIENTED, AND ABLE TO MAKE NEEDS KNOWN. RESPIRATIONS ARE EVEN AND UNLABORED TO ROOM AIR. PT HAS INTERMITTENT COUGH WITH NO SECRETIONS. SKIN IS WARM, DRY, AND INTACT. NOTED SOME BRUISING ON THE ARM. ABDOMEN IS SOFT AND NONTENDER. PT HAS LEFT UPPER ARM PICC LINE PATENT AND INTACT. PT HAS A SKYE CATH WITH PIGTAIL AT HIS RIGHT IJ FOR HD ACCESS. [place] CATHETER IN PLACE AND DRAINING WELL. VITAL SIGNS ARE STABLE. PT DENIES ANY PAIN OR DISCOMFORT AT THIS TIME. NO REQUESTS MADE. PT ORIENTED TO ROOM AND WELCOMED TO UNIT. PT KEPT COMFORTABLE. SAFETY MEASURES IN PLACE. CALL LIGHT WITHIN REACH. WILL CONTINUE TO MONITOR.
[2020-02-10] VITALS: BP 143/69
--- NOTE | 2020-02-10 00:05 | NUR ---
VITAL SIGNS STABLE. PT IN BED RESTING. RESPIRATIONS EVEN AND UNLABORED. PT NOT IN DISTRESS. DENIES ANY PAIN OR DISCOMFORT AT THIS TIME. SAFETY MEASURES IN PLACE. CALL LIGHT WITHIN REACH. WILL CONTINUE TO MONITOR.
--- NOTE | 2020-02-10 02:05 | NUR ---
PT ASLEEP. VISIBLE CHEST RISE AND FALL NOTED. PT NOT IN DISTRESS. O2 SAT 96%. NO S/SX OF DISTRESS NOTED. PT KEPT COMFORTABLE. SAFETY MEASURES IN PLACE. WILL CONTINUE TO MONITOR.
[2020-02-10 04:00] VITALS: BP 136/62
--- NOTE | 2020-02-10 04:05 | NUR ---
VITAL SIGNS STABLE. RESPIRATIONS EVEN AND UNLABORED TO ROOM AIR. CURRENT O2 SAT 97%. PT NOT IN DISTRESS. PT KEPT COMFORTABLE. SAFETY MEASURES IN PLACE. CALL LIGHT WITHIN REACH. WILL CONTINUE TO MONITOR.
--- NOTE | 2020-02-10 06:17 | NUR ---
ROUNDS MADE. PT ASLEEP. NO S/SX OF DISTRESS NOTED. O2 SAT 97%. SAFETY MEASURES IN PLACE. WILL CONTINUE TO MONITOR.
--- NOTE | 2020-02-10 07:01 | NUR ---
RECEIVED BEDSIDE REPORT FROM TRANS ROUTER NURSE REGARDING PATIENT CONDITION AND PLAN OF CARE. PT TO GET HEMODIALYSIS TODAY. PATIENT IS SITTING UP IN BED, BUT ASLEEP. IN NO S/S ACUTE RESPIRATORY DISTRESS, NO APPEARANCE OF PAIN AT THIS TIME. ALL NEEDS MET, CALL LIGHT WITHIN REACH, WILL CONTINUE TO MONITOR.
--- NOTE | 2020-02-10 07:01 | NUR ---
ENDORSED TO DAY SHIFT NURSE FOR CONTINUITY OF CARE. PT IS IN STABLE CONDITION.
[2020-02-10 08:00] VITALS: BP 139/82
[2020-02-10 08:10] LABS: ALBUMIN 1.4 g/dL (3.4-5.0); ANION GAP 22.6 (8-16); CARBON DIOXIDE 18.1 mmol/L (21-32); MAGNESIUM 3.1 mg/dL (1.8-2.4); PHOSPHORUS 4.4 mg/dL (2.5-4.9); POTASSIUM 3.7 mmol/L (3.5-5.1); TOTAL BILIRUBIN 0.9 mg/dL (0.0-1.0)
[2020-02-10 08:13] LABS: CREATININE 8.1 mg/dL (0.6-1.3)
[2020-02-10] MEDS: ASPIRIN 81 MG TAB.CHEW PO SCH (09:00)
[2020-02-10] MEDS: ASCORBIC ACID 500 MG TAB PO SCH (09:30)
[2020-02-10] MEDS: METOPROLOL 25 MG TAB PO SCH ×2 (09:31→19:06)
[2020-02-10] MEDS: metroNIDAZOLE 500 MG/NS PREMIX 100 ML IV SCH ×2 (09:32→22:25)
--- NOTE | 2020-02-10 09:32 | NUR ---
MEDICATIONS EXPLAINED AND GIVEN TO PATIENT. HEPARIN AND ASPIRIN HELD PATIENT PLATELET LEVEL IS ONLY 31. NO S/S BLEEDING. PATIENT HAD BOWEL MOVEMENT, MODERATE AMOUNT, LIQUIDY, DARK STOOL. CLEANED CHANGED AND REPOSITIONED, AND SET UP FOR BREAKFAST. PATIENT EATING BREAKFAST INDEPENDENTLY. FLAGYL GIVEN, NO ADVERSE REACTION NOTED. VITAL SIGNS STABLE, OXYGEN SATURATION AT 95% ON ROOM AIR. ALL NEEDS MET, CALL LIGHT WITHIN REACH, WILL CONTINUE TO MONITOR.
--- NOTE | 2020-02-10 11:30 | NUR ---
PT RESTING IN BED, IN NO S/S RESPIRATORY DISTRESS, NO C/O OF PAIN AT THIS TIME. O2 SATURATION 94%, VITAL SIGNS STABLE. SITTING UP IN BED FOR LUNCH. ALL NEEDS MET, CALL LIGHT WITHIN REACH. WILL CONTINUE TO MONITOR.
[2020-02-10] MEDS: ZINC SULF 220 MG CAP PO SCH ×2 (11:35→22:25)
[2020-02-10] MEDS: VITAMIN D 400 IU TAB PO SCH (11:39)
[2020-02-10 11:45] LABS: BASOPHILS # (AUTO) 0.1 K/uL (0.00-0.22); BASOPHILS % (AUTO) 0.3 % (0.0-2.0); EOSINOPHILS # (AUTO) 0.1 K/uL (0-0.4); EOSINOPHILS % (AUTO) 0.5 % (0.0-4.0); HEMATOCRIT 39.3 % (36-52); HEMOGLOBIN 13.6 g/dL (12.0-18.0); LYMPHOCYTES # (AUTO) 0.9 K/uL (2.0-11.5); LYMPHOCYTES % (AUTO) 3.6 % (20.5-51.1); MEAN CORPUSCULAR HEMOGLOBIN 31 pg (27-31); MEAN CORPUSCULAR HGB CONC 35 g/dL (33-37); MONOCYTES # (AUTO) 0.3 K/uL (0.8-1.0); MONOCYTES % (AUTO) 1.1 % (1.7-9.3); NEUTROPHILS # (AUTO) 24.1 K/uL (1.8-7.7); NEUTROPHILS % (AUTO) 94.5 % (42.2-75.2); PLATELET COUNT (AUTO) 136 K/uL (140-450); RED BLOOD CELL COUNT(AUTO) 4.42 MIL/uL (4.20-6.10); RED CELL DISTRIBUTION WIDTH 16.2 % (11.6-13.7)
[2020-02-10 11:50] LABS: WHITE BLOOD COUNT (AUTO) 25.5 K/uL (4.8-10.8)
[2020-02-10 12:00] VITALS: BP 91/52
--- NOTE | 2020-02-10 13:00 | NUR ---
PT CURRENTLY RECEIVING HEMODIALYSIS, IS LYING ON LEFT LATERAL SIDE, ASLEEP, IN NO S/S RESPIRATORY DISTRESS, NO APPEARANCE OF PAIN AT THIS TIME. CENTRAL LINE DRESSING KIT GIVEN TO DIALYSIS NURSE AND COPY OF LABS. ALL NEEDS MET, CALL LIGHT WITHIN REACH, WILL CONTINUE TO MONITOR. HEMODIALYSIS NURSE BY THE BEDSIDE.
--- NOTE | 2020-02-10 14:24 | NUR ---
HEPARIN GIVEN BY DIALYSIS , RN
[2020-02-10 16:00] VITALS: BP_SYST 101; BP_SYST 120; BP_DIAS 71; BP_DIAS 77
--- NOTE | 2020-02-10 16:15 | NUR ---
HEMODIALYSIS FINISHED, PER REPORT FROM HD NURSE 2.1L OUT. VITAL SIGNS STABLE, PATIENT RESTING IN BED WITH SOME WHEEZING. REPOSITIONED FOR COMFORT. O2 SATURATION 95%. ALL NEEDS MET, CALL LIGHT WITHIN REACH, WILL CONTINUE TO MONITOR.
[2020-02-10] MEDS: CEFEPIME 1,000 MG in DEXTROSE 5% 50 ML IV SCH (16:46)
--- NOTE | 2020-02-10 18:24 | NUR ---
DR LAWRENCE IN TO SEE PATIENT, MADE AWARE OF PATIENTS DIFFICULTY BREATHING AND SOB. SAW AND ASSESSED RESIDENT. STATES THAT HE WILL PUT IN BREATHING TREATMENT ORDERS. NOTED AND WILL ENDORSE TO NEXT SHIFT.
[2020-02-10] MEDS ORDERED: ALBUTEROL SULFATE/IPRATROPIU 3 ML SOL IH PRN (18:30)
--- NOTE | 2020-02-10 18:35 | NUR ---
SPOKE WITH RT AND MADE AWARE OF PATIENTS STATUS, PT IS SOB WITH WHEEZING AND RR 28. RT STATES THEY WILL GIVE BREATHING TREATMENT. WILL CONTINUE TO MONITOR. PATIENT SATURATION IS CURRENTLY 95% ON ROOM AIR. ALL NEEDS MET, CALL LIGHT WITHIN REACH, WILL CONTINUE TO MONITOR.
--- NOTE | 2020-02-10 18:45 | NUR ---
GLASS CUTTER NOTIFIED RN THAT PT HEART RATE IS 130S TO 140S. RN TO IMMEDIATELY ASSESS PATIENT. PATIENT RESTING IN BED , DENIES PAIN, NO SWEATING FEVER DIZZINESS OR OTHER S/S NOTED. PATIENT IS HAVING DIFFICULTY BREATHING AND RESPIRATORY THERAPIST ALREADY PAGED. AWAITING CALL BACK. ALL NEEDS MET, CALL LIGHT WITHIN REACH, WILL CONTINUE TO MONITOR.
[2020-02-10] MEDS: ALBUTEROL SULFATE/IPRATROPIU 3 ML SOL IH SCH (19:00)
--- NOTE | 2020-02-10 19:05 | NUR ---
RECEIVED BEDSIDE REPORT FROM DAY SHIFT NURSE FOR CONTINUITY OF CARE. PT IS A&O X 4. ON RA WITH O2 SAT AT 95%. BREATHING IS UNLABORED. PT WAS GIVEN METOPROLOL EARLY PER DOCTORS REQUEST FOR TACHYCARDIA. WILL MONITOR HR. PT IS AFIB AT BASELINE ON TELE MONITOR. PT HAS A [place] IN PLACE AND PATENT, IT WAS PLACED ON 02/09/2020. PT HAS A RIGHT IJ IN PLACE FOR DIALYSIS, IN WHICH HE HAD DIALYSIS THIS AFTERNOON WHERE 2.1 LITERS WERE REMOVED. LEFT UPPER ARM PICC IN PLACE AND PATENT WITH NS TKO. BREATHING TX WAS PUT IN THE ORDERS PER DOCTOR AND RT WAS CALLED JUST AWAITING BREATHING TREATMENT. SKIN IS WARM, DRY, AND INTACT. BED IS IN LOWEST POSITION AND CALL LIGHT IS WITHIN REACH. PLAN OF CARE DISCUSSED.
--- NOTE | 2020-02-10 19:06 | NUR ---
SPOKE WITH DR LAWRENCE , MADE AWARE OF HEART RATE 130S TO 140S . HE STATES TO GIVE THE METOPROLOL SCHEDULED FOR 9PM NOW. ORDERS NOTED AND CARRIED OUT. WILL CONTINUE TO MONITOR.
--- NOTE | 2020-02-10 19:32 | NUR ---
GAVE BEDSIDE REPORT REGARDING PT CONDITION AND PLAN OF CARE. PT IS STABILIZED RESTING COMFORTABLY IN BED, IN NO S/S RESPIRATORY DISTRESS, DENIES PAIN. ENDORSED TO SERVICE ESTABLISHMENT ATTENDANT NURSE TO MONITOR HEART RATE, VERBALIZED UNDERSTANDING
--- NOTE | 2020-02-10 19:53 | NUR ---
CALLED RT FOR A BREATHING TX. PT HR 125, O2 SAT IS 94%, AND BREATHING IS SHALLOW. RT WILL BE HERE SHORTLY. WILL CONTINUE TO MONITOR.
[2020-02-10 20:00] VITALS: BP 107/70
--- NOTE | 2020-02-10 20:20 | NUR ---
CONTACTED DR. ALLISON ACUTE CARE OCCUPATIONAL THERAPIST TO REPORT HR OF PT IN THE 130'S. BP WAS REPORTED AT 107/70 AND O2 SAT IS 95%. DOCTOR ORDERED CARDIZEM 30 MG PO ONCE. ALSO INFORMED DOCTOR THAT PT NEEDED A BREATHING TX AFTER CONSULTING WITH THE RT THAT THEY COULD NOT GIVE ALBUTEROL BECAUSE OF THE TACHYCARDIA. DOCTOR ORDERED ATROVENT NEBULIZER TX PRN. WILL ADMINISTER SOON VERIFIED BY PHARMACY.
[2020-02-10] MEDS ORDERED: IPRATROPIUM 0.02% 0.5 MG/2.5 ML NEBU INH PRN (20:35)
[2020-02-10] MEDS ORDERED: DILTIAZEM 30 MG TAB PO SCH (20:35)
--- NOTE | 2020-02-10 20:55 | NUR ---
SPOKE TO NATALIE MORENO, NEPHEW OF PT AND INFORMED HIM ABOUT THE UPDATE OF THE PT'S CARE. ALSO UPDATED THE NEPHEW ON THE PLAN OF CARE. TOLD HIM TO CALL BACK IF HE HAD ANY MORE QUESTIONS.
--- NOTE | 2020-02-10 21:00 | NUR ---
HELD HEPARIN SUBQ INJECTION PER NOTES OF BRICKLAYER ADVISING TO HOLD MEDICATION. PLT'S ARE 136 AT THIS TIME.
--- NOTE | 2020-02-10 21:15 | NUR ---
RT IS AT BEDSIDE GIVING THE PT ATROVENT NEBULIZER TX. NO DISTRESS NOTED. PT IS ON RA AND LUNG SOUNDS ARE COARSE. BREATHING IS UNLABORED. WILL CONTINUE TO MONITOR.
[2020-02-10] MEDS: ATORVASTATIN 20 MG TAB PO SCH (22:25)
[2020-02-10] MEDS: guaiFENesin 600 MG TABER PO SCH (22:26)
--- NOTE | 2020-02-10 22:45 | NUR ---
CARDIZEM WAS GIVEN ONCE FOR PT'S HR OF 135. BP WAS 117/70. WILL MONITOR HR AND BP.
[2020-02-11] VITALS: BP 148/77
--- NOTE | 2020-02-11 | NUR ---
RECHECKED BP AND HR. BP IS 148/77 AND HR IS 111 AFTER GIVING THE CARDIZEM. WILL CONTINUE TO MONITOR.
--- NOTE | 2020-02-11 01:45 | NUR ---
PT IS ASLEEP. PT'S HR IS 109 ON TELE MONITORING. BREATHING IS UNLABORED AND REGULAR. CHEST RISE AND FALL IS SYMMETRICAL. NO SIGNS OF DISTRESS AT THIS TIME.
[2020-02-11 04:00] VITALS: BP 132/77
--- NOTE | 2020-02-11 04:00 | NUR ---
PT IS UP TO THE RESTROOM WITH ASSIST WHERE HE HAD A BOWEL MOVEMENT. PT IS AWAKE AND ALERT. NO DISTRESS NOTED. HR IS 109 ON TELE MONITORING.
--- NOTE | 2020-02-11 06:00 | NUR ---
PT IS ASSISTED ON THE BEDPAN FOR ANOTHER BM. WATERY, DARK, DIARRHEA NOTED. WILL CONTINUE TO MONITOR. PT IS STABLE AT THIS TIME.
--- NOTE | 2020-02-11 07:09 | NUR ---
ENDORSED PT TO DAY SHIFT NURSE FOR CONTINUITY OF CARE. PT IS STABLE AT THIS TIME. PLAN OF CARE DISCUSSED.
--- NOTE | 2020-02-11 07:09 | NUR ---
RECEIVED BEDSIDE REPORT FROM RETAIL LINK ANALYST NURSE REGARDING PATIENT CONDITION AND PLAN OF CARE. PT IS CURRENTLY ASLEEP, IN NO S/S RESPIRATORY DISTRESS, NO C/O OF PAIN, ALL NEEDS MET, CALL LIGHT WITHIN REACH.W ILL CONTINUE TO MONITOR.
[2020-02-11] MEDS: ALBUTEROL SULFATE/IPRATROPIU 3 ML SOL IH SCH ×2 (07:57→13:46)
[2020-02-11 08:00] VITALS: BP 140/77
[2020-02-11 08:37] LABS: MAGNESIUM 2.6 mg/dL (1.8-2.4); PHOSPHORUS 4.4 mg/dL (2.5-4.9)
[2020-02-11] MEDS: VITAMIN D 400 IU TAB PO SCH (08:44)
[2020-02-11] MEDS: ZINC SULF 220 MG CAP PO SCH ×2 (08:44→21:05)
[2020-02-11] MEDS: metroNIDAZOLE 500 MG/NS PREMIX 100 ML IV SCH ×2 (08:45→21:04)
[2020-02-11] MEDS: ASPIRIN 81 MG TAB.CHEW PO SCH (08:45)
[2020-02-11] MEDS: METOPROLOL 25 MG TAB PO SCH ×2 (08:45→21:05)
[2020-02-11] MEDS: ASCORBIC ACID 500 MG TAB PO SCH (08:45)
--- NOTE | 2020-02-11 08:45 | NUR ---
MEDICATIONS EXPLAINED AND GIVEN TO PATIENT, TOLERATED WELL, NO S/S ADVERSE REACTION. PT ANTICOAGULANTS ASPIRIN AND HEPARIN HELD PATIENT IS THROMBOCYTOPENIC. PATIENT IS AOX4, SHALLOW BUT EVEN RESPIRATIONS OF 20. SKIN INTACT, NO CYANOSIS PALLOR OR EDEMA NOTED, CAP REFILL < 3 SECONDS. DENIES PAIN AT THIS TIME. PATIENT SITTING UP IN BED EATING BREAKFAST. ALL NEEDS MET, CALL LIGHT WITHIN REACH, WILL CONTINUE TO MONITOR.
[2020-02-11 08:50] LABS: CARBON DIOXIDE 20.3 mmol/L (21-32); POTASSIUM 3.3 mmol/L (3.5-5.1)
[2020-02-11] MEDS: guaiFENesin 600 MG TABER PO SCH ×2 (08:56→21:05)
[2020-02-11 10:06] LABS: HEMATOCRIT 37.8 % (36-52); HEMOGLOBIN 12.6 g/dL (12.0-18.0); MEAN CORPUSCULAR HEMOGLOBIN 29 pg (27-31); MEAN CORPUSCULAR HGB CONC 33 g/dL (33-37); WHITE BLOOD COUNT (AUTO) 26.9 K/uL (4.8-10.8)
[2020-02-11 10:07] LABS: MEAN CORPUSCULAR VOLUME 87.8 fL (80-94); PLATELET COUNT (AUTO) 45 K/uL (140-450)
[2020-02-11 10:10] LABS: LYMPHOCYTES % (MANUAL) 4 % (20-46); MONOCYTES % (MANUAL) 2 % (5-12)
--- NOTE | 2020-02-11 10:50 | NUR ---
ANSWERED PATIENTS CALL LIGHT, PLACED PATIENT ON BED MO. PATIENT HAD MODERATE AMOUNT OF DARK BROWN/BLACK STOOL. PT CLEANED, CHANGED, AND REPOSITIONED. ALL NEEDS MET, CALL LIGHT WITHIN REACH, WILL CONTINUE TO MONITOR.
[2020-02-11 11:50] LABS: CREATININE 7.2 mg/dL (0.6-1.3)
[2020-02-11 12:00] VITALS: BP 119/75
--- NOTE | 2020-02-11 12:30 | NUR ---
ROUNDED ON PATIENT, PATIENT SITTING UP IN BED WITH LUNCH TRAY IN FRONT OF HIM. BUT PATIENT STATES HE DOES NOT HAVE APPETITE TO EAT, ONLY 10% OF LUNCH WAS EATEN. ENCOURAGED PATIENT TO EAT BUT PATIENT REFUSES. WILL CONTINUE TO MONITOR AND ENCOURAGE PATIENT. ALL NEEDS MET, CALL LIGHT WITHIN REACH, WILL CONTINUE TO MONITOR.
--- NOTE | 2020-02-11 14:20 | NUR ---
ROUNDED ON PATIENT. PT IS SLEEPING COMFORTABLY IN BED, IN NO S/S RESPIRATORY DISTRESS, NO C/O OF PAIN. ALL NEEDS MET, CALL LIGHT WITHIN REACH, WILL CONTINUE TO MONITOR.
--- NOTE | 2020-02-11 14:26 | NUR ---
CLAUDIA AT DIALYSIS MADE AWARE OF THE HD ORDERED FOR TODAY. RN ASSIGNED NOTIFIED.
[2020-02-11] MEDS: CEFEPIME 1,000 MG in DEXTROSE 5% 50 ML IV SCH (15:37)
--- NOTE | 2020-02-11 15:37 | NUR ---
HUNG PT MAXIPIME, NO ADVERSE REACTIONS NOTED. PT IS RESTING COMFORTABLY IN BED, IN NO S/S RESPIRATORY DISTRESS, NO C/O OF PAIN. ALL NEEDS MET, CALL LIGHT WITHIN REACH, WILL CONTINUE TO MONITOR.
[2020-02-11 16:00] VITALS: BP 135/75
--- NOTE | 2020-02-11 16:12 | NUR ---
WATER PUMP ASSEMBLER BY BEDSIDE STARTING HEMODIALYSIS, PATIENT IS IN STABLE CONDITION. ALL NEEDS MET, CALL LIGHT WITHIN REACH, WILL CONTINUE TO MONITOR.
--- NOTE | 2020-02-11 16:25 | NUR ---
02/11/20 RD FOLLOW UP COMPLETED PLEASE REFER TO NUTRITION ASSESSMENT UNDER CARE ACTIVITY FOR ESTIMATED NUTRITIONAL NEEDS. 1. RECOMMEND MECHANICAL SOFT RENAL CCHO 60GM 2. RECOMMEND NEPRO BID 3. RD WILL PROVIDE NUTRITION EDUCATION ON RENAL DIET 4. RD TO FOLLOW-UP 2-3 DAYS, HIGH RISK ROLAN VILLAGRAN, RD
--- NOTE | 2020-02-11 18:12 | NUR ---
FINAL ARMATURE TESTER STILL BY BEDSIDE. PATIENT STILL UNDERGOING DIALYSIS. STABILIZED, WILL CONTINUE TO MONITOR.
[2020-02-11] MEDS: POTASSIUM CHLORIDE 10 MEQ TABER PO PRN (18:30)
--- NOTE | 2020-02-11 18:45 | NUR ---
PT FINISHED DIALYSIS, VITAL SIGNS STABLE. PATIENT IS STABLE. 2L OUT PER BATCH PLANT OPERATOR REPORT. ALL NEEDS MET, CALL LIGHT WITHIN REACH, WILL ENDORSE PLAN OF CARE TO NEXT SHIFT.
--- NOTE | 2020-02-11 19:20 | NUR ---
BEDSIDE REPORT GIVEN TO DIESEL TRAILER MECHANIC NURSE. PATIENT IS STABILIZED AT THIS TIME
[2020-02-11 20:00] VITALS: BP 159/83
--- NOTE | 2020-02-11 20:10 | NUR ---
AWAKE ALERT AND ORIENTED.RESP.UNLABORED IN RA.LUNGS WHEEZES.PICC LINE PATENT IN LT.U.ARM.H.D CATH.IS IN RT.I.J.CALL LIGHT IN REACH.NO C/O PAIN AT THIS TIME.TELE IS ON AND SHOWING UNCONTROLLED ATRIAL FIB/FLUTTER.WILL CONTINUE MONITORING.
[2020-02-11] MEDS: ATORVASTATIN 20 MG TAB PO SCH (21:04)
[2020-02-12] VITALS: BP 113/56
--- NOTE | 2020-02-12 | NUR ---
SLEEPING.NO DISTRESS NOTED NOW.HR IS A-FIB/FLUTTER.CALL LIGHT WITHIN REACH.
[2020-02-12 04:00] VITALS: BP 125/75
--- NOTE | 2020-02-12 04:10 | NUR ---
SLEEPING W/O ANY S/S OF ANY DISTRESS.CALL LIGHT IN REACH.HR IS A-FIB/FLUTTER.
--- NOTE | 2020-02-12 06:43 | NUR ---
HAD NO DIARRHEA DURING ADJUSTO WRITER OPERATOR. HAD NORMAL BM.CONDITION IS STABLE.
[2020-02-12] MEDS: ALBUTEROL SULFATE/IPRATROPIU 3 ML SOL IH SCH ×3 (06:53→20:21)
[2020-02-12 07:00] LABS: HEMATOCRIT 35.3 % (36-52); HEMOGLOBIN 11.8 g/dL (12.0-18.0); MEAN CORPUSCULAR HEMOGLOBIN 29 pg (27-31); MEAN CORPUSCULAR HGB CONC 34 g/dL (33-37); MEAN CORPUSCULAR VOLUME 87.5 fL (80-94); PLATELET COUNT (AUTO) 35 K/uL (140-450); RED BLOOD CELL COUNT(AUTO) 4.04 MIL/uL (4.20-6.10)
--- NOTE | 2020-02-12 07:15 | NUR ---
RECEIVED REPORT FROM CHEMICAL PROCESSOR NURSE EMILY FOR CONTINUITY OF CARE. PATIENT IN STABLE CONDITION. RESPIRATIONS EVEN AND UNLABORED, ROOM AIR. IV INTACT AND PATENT. BED IN LOW POSITION. BED ALARM ON. CALL LIGHT WITHIN REACH. WILL CONTINUE TO MONITOR.
[2020-02-12 07:19] LABS: ANION GAP 19.2 (8-16); CARBON DIOXIDE 20.3 mmol/L (21-32); POTASSIUM 3.5 mmol/L (3.5-5.1)
[2020-02-12 07:46] LABS: MAGNESIUM 2.4 mg/dL (1.8-2.4); PHOSPHORUS 5.2 mg/dL (2.5-4.9)
[2020-02-12 08:00] VITALS: BP 150/79
[2020-02-12 08:53] LABS: WHITE BLOOD COUNT (AUTO) 28.2 K/uL (4.8-10.8)
[2020-02-12 08:54] LABS: CREATININE 6.8 mg/dL (0.6-1.3)
[2020-02-12 08:57] LABS: LYMPHOCYTES % (MANUAL) 7 % (20-46); MONOCYTES % (MANUAL) 3 % (5-12)
[2020-02-12] MEDS: ASCORBIC ACID 500 MG TAB PO SCH (09:06)
[2020-02-12] MEDS: guaiFENesin 600 MG TABER PO SCH ×2 (09:06→20:46)
[2020-02-12] MEDS: ASPIRIN 81 MG TAB.CHEW PO SCH (09:06)
[2020-02-12] MEDS: VITAMIN D 400 IU TAB PO SCH (09:06)
[2020-02-12] MEDS: METOPROLOL 25 MG TAB PO SCH ×2 (09:07→20:46)
--- NOTE | 2020-02-12 09:07 | NUR ---
GAVE ORDERED DUE MEDICATIONS AT THIS TIME. PATIENT TOLERATED WELL. BED IN LOW POSITION. BED ALARM ON. CALL LIGHT WITHIN REACH. WILL CONTINUE TO MONITOR.
--- NOTE | 2020-02-12 10:18 | NUR ---
PATIENT SLEEPING AT THIS TIME. RESPIRATIONS EVEN AND UNLABORED. PATIENT TOLERATED WELL. BED IN LOW POSITION. BED ALARM ON. CALL LIGHT WITHIN REACH. WILL CONTINUE TO MONITOR.
[2020-02-12 12:00] VITALS: BP 134/76
--- NOTE | 2020-02-12 13:01 | NUR ---
PATIENT FINISHING UP LUNCH. LOW OPTIMAL INTAKE. BED IN LOW POSITION. BED ALARM ON. CALL LIGHT AT BEDSIDE. WILL CONTINUE TO MONITOR.
--- NOTE | 2020-02-12 15:13 | NUR ---
PATIENT SLEEPING AT THIS TIME. RESPIRATIONS EVEN AND UNLABORED. BED IN LOW POSITION. BED ALARM ON. CALL LIGHT AT BEDSIDE. WILL CONTINUE TO MONITOR.
[2020-02-12 16:00] VITALS: BP 144/78
[2020-02-12] MEDS: CEFEPIME 1,000 MG in DEXTROSE 5% 50 ML IV SCH (16:51)
--- NOTE | 2020-02-12 17:26 | NUR ---
PATIENT TALKING ON PHONE WITH FAMILY IN STABLE CONDITION. BED IN LOW POSITION. BED ALARM ON. CALL LIGHT AT BEDSIDE. WILL CONTINUE TO MONITOR.
--- NOTE | 2020-02-12 19:26 | NUR ---
GAVE REPORT TO PROCESS CONTROL SPECIALIST NURSE EMILY FOR CONTINUITY OF CARE. PATIENT IN STABLE CONDITION.
--- NOTE | 2020-02-12 19:30 | NUR ---
JAJA. REPORT FROM CHARGE NURSE EMILY. PATIENT RESTING IN BED, AWAKE, A/OX4. RESPIRATION EVEN AND UNLABORED. IV OF NS AT TKO INFUSING, LEFT UPPER ARM PICC LINE. DIALYSIS CATH AT RIGHT IJ WITH DRESSING DRY AND INTACT. F/C PATENT DRAINING MINIMAL AMOUNT OF CLEAR YELLOW URINE. SAFETY MEASURES ENFORCED. BED IN THE LOWEST POSITION, CALL IGHT IN REACH. PLAN OF CARE FOR THE SHIFT DISCUSSED. VERBALIZED UNDERSTANDING. DENIES PAIN 0/10.
[2020-02-12 20:00] VITALS: BP 112/65
--- NOTE | 2020-02-12 20:46 | NUR ---
DUE PO MEDICATIONS GIVEN. SNACK FOR THE NIGHT GIVEN.
[2020-02-12] MEDS: ATORVASTATIN 20 MG TAB PO SCH (20:47)
[2020-02-13] VITALS: BP 111/65
--- NOTE | 2020-02-13 | NUR ---
SLEEPING COMFORTABLY IN BED.
--- NOTE | 2020-02-13 02:00 | NUR ---
HAD LARGE LOOSE BM BLACK COLOR. CLEANSED AND REPOSITIONED IN BED FOR COMFORT.
[2020-02-13 04:00] VITALS: BP 137/73
--- NOTE | 2020-02-13 04:30 | NUR ---
SENT [facility] TO LAB FOR URINALYSIS.
[2020-02-13] MEDS: ALBUTEROL SULFATE/IPRATROPIU 3 ML SOL IH SCH ×3 (07:00→19:00)
[2020-02-13 07:17] LABS: HEMATOCRIT 33.6 % (36-52); HEMOGLOBIN 11.3 g/dL (12.0-18.0); MEAN CORPUSCULAR HEMOGLOBIN 29 pg (27-31); MEAN CORPUSCULAR HGB CONC 34 g/dL (33-37); MEAN CORPUSCULAR VOLUME 87.5 fL (80-94); PLATELET COUNT (AUTO) 71 K/uL (140-450); RED BLOOD CELL COUNT(AUTO) 3.84 MIL/uL (4.20-6.10)
--- NOTE | 2020-02-13 07:25 | NUR ---
CONDITION REMAIN STABLE. ENDORSED TO AM SHIFT NURSE FOR CONTINUITY OF CARE.
--- NOTE | 2020-02-13 07:25 | NUR ---
BEDSIDE REPORT GIVEN BY NIGHT NURSE. PATIENT IN BED, ASLEEP AND EASILY AROUSABLE BY NAME OR TOUCH. RESPIRATIONS EVEN AND UNLABORED. SKIN WARM AND DRY TO TOUCH. PICC LINE INTACT AND PATENT TO LEFT UPPER ARM. RIGHT IJ SKYE CATH INTACT. [place] CATHETER INTACT AND PATENT, DRAINING CLEAR YELLOW COLORED URINE. BED IN LOW POSITION. SAFETY MEASURES IN PLACE. PLANS OF CARE DISCUSSED. CALL LIGHT WITHIN REACH.
[2020-02-13 07:30] LABS: WHITE BLOOD COUNT (AUTO) 26.8 K/uL (4.8-10.8)
[2020-02-13 08:00] VITALS: BP 143/84
[2020-02-13 08:15] LABS: LYMPHOCYTES % (MANUAL) 5 % (20-46); MONOCYTES % (MANUAL) 3 % (5-12)
[2020-02-13 08:46] LABS: ANION GAP 22.3 (8-16); CARBON DIOXIDE 18.4 mmol/L (21-32); POTASSIUM 3.7 mmol/L (3.5-5.1)
[2020-02-13 08:51] LABS: APPEARANCE,URINE HAZY (CLEAR); BILIRUBIN,URINE NEGATIVE (NEGATIVE); BLOOD, URINE 2+ (NEGATIVE); COLOR,URINE YELLOW (YELLOW); LEUKOCYTE ESTERASE ,URINE 1+ (NEGATIVE); NITRITE, URINE NEGATIVE (NEGATIVE); PH,URINE 5.5 (5.0-9.0); UGLUCOSE NEGATIVE (NEGATIVE)
[2020-02-13] MEDS: ASPIRIN 81 MG TAB.CHEW PO SCH (09:06)
[2020-02-13] MEDS: guaiFENesin 600 MG TABER PO SCH ×2 (09:06→21:00)
[2020-02-13] MEDS: METOPROLOL 25 MG TAB PO SCH ×2 (09:06→21:19)
--- NOTE | 2020-02-13 09:10 | NUR ---
PATIENT SITTING UP CHAIR EATING BREAKFAST. NO DISTRESS NOTED. AM MEDICATIONS GIVEN ORDERED. CALL LIGHT WITHIN REACH.
[2020-02-13 09:52] LABS: WBC,URINE 0-5 /HPF (0-5)
--- NOTE | 2020-02-13 11:00 | NUR ---
PATIENT IN BED, ASLEEP, EASILY AROUSABLE BY NAME OR TOUCH. DENIES ANY PAIN OR DISCOMFORT.
[2020-02-13 11:48] LABS: URINE TOTAL PROTEIN 55.6 mg/dL (0-12)
[2020-02-13 12:00] VITALS: BP 127/87
[2020-02-13 13:05] LABS: MAGNESIUM 2.7 mg/dL (1.8-2.4); PHOSPHORUS 6.7 mg/dL (2.5-4.9)
--- NOTE | 2020-02-13 13:35 | NUR ---
DR. ALEXANDER AWARE PATIENT HAS NOT HAD SKYE CATH REPLACED YET BY DR. POMPA. PER DR. POMPA'S PA DR. POMPA WILL BE HERE LATE THIS AFTERNOON TO SEE PATIENT.
--- NOTE | 2020-02-13 15:00 | NUR ---
PATIENT IS AWAKE, ALERT AND VERBALLY RESPONSIVE. DENIES PAIN OR DISCOMFORT AT THIS TIME. CALL LIGHT WITHIN REACH.
[2020-02-13] MEDS: CEFEPIME 1,000 MG in DEXTROSE 5% 50 ML IV SCH (15:37)
[2020-02-13 16:00] VITALS: BP 128/82
--- NOTE | 2020-02-13 17:25 | NUR ---
PATIENT IS AWAKE, VERBALLY RESPONSIVE. DENIES ANY PAIN OR DISCOMFORT AT THIS TIME.
--- NOTE | 2020-02-13 18:50 | NUR ---
PATIENT IN STABLE CONDITION. WILL ENDORSE TO NIGHT NURSE.
--- NOTE | 2020-02-13 18:51 | NUR ---
RECD. RESTING IN BED, AWAKE, A/OX4. RESPIRATION EVEN AND UNLABORED. IV OF NS AT 10 ML/HR INFUSING LEFT UPPER ARM PICC LINE. WITH RIGHT INTRAJUGULAR DIALYSIS CATH THAT IS NOT WORKING, FOR CHANGED TONIGHT TO SKYE CATH. F/C PATENT DRAINING CLEAR YELLOW URINE. PATIENT IS AWARE OF THE PLAN NEW DIALYSIS CATH PLACEMENT. PLAN OF CARE FOR THE NIGHT DISCUSSED. VERBALIZED UNDERSTANDING. DENIES PAIN 0/10.
--- NOTE | 2020-02-13 19:20 | NUR ---
DR. BONY POMPA CAME, CALLED RADIOLOGY FOR ULTRA SOUND GUIDED SKYE CATH PLACEMENT.
--- NOTE | 2020-02-13 19:35 | NUR ---
GAVE TO DR. POMPA HEPARIN 5000 UNITS TO BE USED DURING DIALYSIS CATH PLACEMENT.
--- NOTE | 2020-02-13 19:45 | NUR ---
PUT A NEW SKYE CATH AT THE LEFT INTRAJUGULAR AREA. DRY AND INTACT.
[2020-02-13 20:00] VITALS: BP 130/72
--- NOTE | 2020-02-13 20:00 | NUR ---
PATIENT COMPLAINED OF UNABLE TO BREATH AIR AFTER THE PROCEDURE. PUT ON 2 LITERS N/C PER DR POMPA. ELEVATED HOB T0 45 DEGREES. 02 SAT - 98%. MADE PATIENT COMFORTABLE IN BED.
--- NOTE | 2020-02-13 20:00 | NUR ---
Patient's Plan of Care was discussed and reviewed with BRAZER ASSEMBLER: MARJORIE PARRY
--- NOTE | 2020-02-13 20:15 | NUR ---
CHEST X-RAY DONE TO CHECK PLACEMENT, WILL FOLLOW UP RESULT.
--- NOTE | 2020-02-13 21:00 | NUR ---
X-RAY SHOWS LEFT PERIPHERALLY INSERTED CENTRAL CATHETER SEEN WITH TIP OVER SUPERIOR VENA CAVA.
[2020-02-13] MEDS: ATORVASTATIN 20 MG TAB PO SCH (21:18)
[2020-02-14] VITALS: BP 132/75
--- NOTE | 2020-02-14 | NUR ---
SLEEPING COMFORTABLY IN BED.
--- NOTE | 2020-02-14 02:00 | NUR ---
PUT CENTRAL LINE DRESSING WITH CHARGE NURSE RADHA ON LEFT INTRAJUGULAR DIALYSIS CATH.
[2020-02-14 04:00] VITALS: BP 134/72
--- NOTE | 2020-02-14 04:00 | NUR ---
COMFORTABLE IN BED, STILL SLEEPING.
[2020-02-14 06:17] LABS: BASOPHILS # (AUTO) 0.1 K/uL (0.00-0.22); BASOPHILS % (AUTO) 0.5 % (0.0-2.0); EOSINOPHILS # (AUTO) 0.1 K/uL (0-0.4); EOSINOPHILS % (AUTO) 0.6 % (0.0-4.0); HEMATOCRIT 27.5 % (36-52); HEMOGLOBIN 9.3 g/dL (12.0-18.0); LYMPHOCYTES # (AUTO) 1.1 K/uL (2.0-11.5); LYMPHOCYTES % (AUTO) 4.3 % (20.5-51.1); MEAN CORPUSCULAR HEMOGLOBIN 30 pg (27-31); MEAN CORPUSCULAR HGB CONC 34 g/dL (33-37); MEAN CORPUSCULAR VOLUME 87.7 fL (80-94); MONOCYTES # (AUTO) 0.6 K/uL (0.8-1.0); MONOCYTES % (AUTO) 2.2 % (1.7-9.3); NEUTROPHILS # (AUTO) 23.4 K/uL (1.8-7.7); NEUTROPHILS % (AUTO) 92.4 % (42.2-75.2); PLATELET COUNT (AUTO) 136 K/uL (140-450); RED BLOOD CELL COUNT(AUTO) 3.14 MIL/uL (4.20-6.10); RED CELL DISTRIBUTION WIDTH 14.7 % (11.6-13.7)
[2020-02-14] MEDS: ACETAMINOPHEN 325 MG TAB PO PRN (06:17)
--- NOTE | 2020-02-14 07:00 | NUR ---
CONDITION REMAIN STABLE. WILL ENDORSE TO AM SHIFT NURSE FOR CONTINUITY OF CARE.
[2020-02-14] MEDS: ALBUTEROL SULFATE/IPRATROPIU 3 ML SOL IH SCH ×3 (07:25→19:00)
--- NOTE | 2020-02-14 07:25 | NUR ---
NEBULIZED TX NOT GIVEN PER COVID PROTOCOL. NO RESPIRATORY DISTRESS NOTED AT THIS TIME. WILL CONTINUE TO MONITOR.
[2020-02-14 08:00] VITALS: BP 145/79
[2020-02-14 08:17] LABS: WHITE BLOOD COUNT (AUTO) 25.3 K/uL (4.8-10.8)
[2020-02-14 08:39] LABS: ANION GAP 23.8 (8-16); CARBON DIOXIDE 16.8 mmol/L (21-32); MAGNESIUM 2.5 mg/dL (1.8-2.4); PHOSPHORUS 6.9 mg/dL (2.5-4.9); POTASSIUM 3.6 mmol/L (3.5-5.1)
[2020-02-14 08:40] LABS: CREATININE 8.1 mg/dL (0.6-1.3)
--- NOTE | 2020-02-14 09:55 | NUR ---
HD STARTED BY HD NURSE, NEW HD ACCESS ON LEFT IJ. TOLERATING WELL.
[2020-02-14] MEDS ORDERED: VANCOMYCIN 500 MG VIAL PO SCH (13:30)
--- NOTE | 2020-02-14 14:10 | NUR ---
02/14/20 RD FOLLOW UP COMPLETED. PLEASE REFER TO NUTRITION ASSESSMENT UNDER CARE ACTIVITY FOR ESTIMATED NUTRITIONAL NEEDS. 1. CONTINUE CURRENT DIET TOLERATED 2. CONTINUE NEPRO BID FOR NUTRITION SUPPORT RD TO FOLLOW-UP IN 2-3 DAYS PATIENT IS HIGH RISK. SUSAN HERNANDEZ, RD
[2020-02-14 18:45] VITALS: BP 141/85
[2020-02-14] MEDS: ASPIRIN 81 MG TAB.CHEW PO SCH (18:46)
[2020-02-14] MEDS: guaiFENesin 600 MG TABER PO SCH ×2 (18:46→21:30)
[2020-02-14] MEDS: METOPROLOL 25 MG TAB PO SCH ×2 (18:47→21:30)
[2020-02-14] MEDS: CEFEPIME 1,000 MG in DEXTROSE 5% 50 ML IV SCH (18:50)
--- NOTE | 2020-02-14 19:05 | NUR ---
RECEIVED PT AAOX4 - NEEDS OF RE INFORCEMENT , NID - O2 SAT WNL . PICC LINE - INTACT AND PATENT . W/ HD IN IJ - INTACT . DENIES PAIN . SAFETY MEASURES IN PLACE . W/ FC - HAD HEMO DIALYSIS TODAY . PLAN OF CARE DISCUSSED BUT NEEDS RE INFORCEMENT . FALL RISK . [facility] ON TELE MONITOR.CALL LIGHT WITHIN REACH .
--- NOTE | 2020-02-14 19:25 | NUR ---
PT CHECKED. NO RESPIRATORY DISTRESS NOTED. PT WAS ASLEEP. NO TX GIVEN. TRIED WAKING UP PATIENT FOR TX. WILL CONT TO MONITOR
[2020-02-14 20:00] VITALS: BP 133/69
--- NOTE | 2020-02-14 21:00 | NUR ---
VANCOCIN 125 MG / ORAL GIVEN Addendum: 02/15/20 at 0256 by Soha Philip RN I FOUND OUT DR. RIOS D/C ORAL VANCOCIN AT PAST 2099 - BUT THE DUE 2099 ORAL ALREADY GIVEN - THERE IS VANCOCIN TIV NEWLY ORDERED . - WILL ASK / INFORM THE PHARMACIST ABOUT IT .
[2020-02-14 21:15] LABS: ANTI-NUCLEAR ANTIBODY,DIRECT Positive (Negative)
[2020-02-14] MEDS ORDERED: VANCOMYCIN PER PHARMACY MC PRN (21:20)
[2020-02-14] MEDS: ATORVASTATIN 20 MG TAB PO SCH (21:30)
[2020-02-14] MEDS ORDERED: FLUCONAZOLE 200 MG/NS PREMIX 100 ML IV ONE (22:40)
[2020-02-15] VITALS: BP 130/70
--- NOTE | 2020-02-15 | NUR ---
MADE ROUNDS , NO S/SX OF ACUTE DISTRESS NOTED . - WILL CONT. TO MONITOR.
[2020-02-15] MEDS: VANCOMYCIN HCL 1.25 GM in DEXTROSE 5% 250 ML IV ONE ×2 (01:00→03:50)
--- NOTE | 2020-02-15 02:00 | NUR ---
SLEEPING - CHEST RISE AND FALL EQUALLY .
[2020-02-15] MEDS ORDERED: FLUCONAZOLE 200 MG/NS PREMIX 100 ML IV ONE ×2 (02:33→16:27)
[2020-02-15] MEDS ORDERED: VANCOMYCIN 500 MG VIAL ONE (03:30)
[2020-02-15] MEDS ORDERED: VANCOMYCIN 1,000 MG VIAL ONE (03:30)
[2020-02-15 04:00] VITALS: BP 136/71
--- NOTE | 2020-02-15 04:00 | NUR ---
MADE ROUNDS , NO S/SX OF ACUTE DISTRESS NOTED .
--- NOTE | 2020-02-15 06:00 | NUR ---
NO COMPLAIN MADE . WILL CONT. TO MONITOR.
--- NOTE | 2020-02-15 07:05 | NUR ---
ENDORSED TO AM SHIFT - PT - STABLE . FOR HD TODAY - REMIND HEMO DIALYSIS NURSE THRU TEL . REMIND THE AM NURSE ABOUT THE DIFLUCAN POST HEMODIALYSIS .
[2020-02-15 07:07] LABS: BASOPHILS # (AUTO) 0.1 K/uL (0.00-0.22); BASOPHILS % (AUTO) 0.4 % (0.0-2.0); EOSINOPHILS # (AUTO) 0.1 K/uL (0-0.4); EOSINOPHILS % (AUTO) 0.5 % (0.0-4.0); HEMATOCRIT 27.9 % (36-52); HEMOGLOBIN 9.3 g/dL (12.0-18.0); LYMPHOCYTES # (AUTO) 1.1 K/uL (2.0-11.5); LYMPHOCYTES % (AUTO) 4.5 % (20.5-51.1); MEAN CORPUSCULAR HEMOGLOBIN 29 pg (27-31); MEAN CORPUSCULAR HGB CONC 33 g/dL (33-37); MONOCYTES # (AUTO) 0.9 K/uL (0.8-1.0); MONOCYTES % (AUTO) 3.8 % (1.7-9.3); NEUTROPHILS # (AUTO) 21.7 K/uL (1.8-7.7); NEUTROPHILS % (AUTO) 90.8 % (42.2-75.2); PLATELET COUNT (AUTO) 187 K/uL (140-450); RED BLOOD CELL COUNT(AUTO) 3.17 MIL/uL (4.20-6.10); RED CELL DISTRIBUTION WIDTH 14.7 % (11.6-13.7); WHITE BLOOD COUNT (AUTO) 23.9 K/uL (4.8-10.8)
[2020-02-15] MEDS: ALBUTEROL SULFATE/IPRATROPIU 3 ML SOL IH SCH ×2 (07:15→19:00)
[2020-02-15 07:38] LABS: ANION GAP 16.3 (8-16); CARBON DIOXIDE 24.2 mmol/L (21-32); POTASSIUM 3.5 mmol/L (3.5-5.1)
[2020-02-15 08:00] VITALS: BP 137/79
[2020-02-15 08:08] LABS: CREATININE 5.5 mg/dL (0.6-1.3)
[2020-02-15] MEDS: ASPIRIN 81 MG TAB.CHEW PO SCH (08:52)
[2020-02-15] MEDS: guaiFENesin 600 MG TABER PO SCH ×2 (08:56→21:18)
[2020-02-15] MEDS ORDERED: PHARMACY COMMENTS MC SCH (09:00)
[2020-02-15 12:00] VITALS: BP 145/87
[2020-02-15 16:21] VITALS: BP 145/87
[2020-02-15] MEDS: CEFEPIME 1,000 MG in DEXTROSE 5% 50 ML IV SCH (16:30)
[2020-02-15] MEDS: METOPROLOL 25 MG TAB PO SCH ×2 (16:30→21:17)
--- NOTE | 2020-02-15 18:37 | NUR ---
SEEN BY PHYSICAL THERAPIST TODAY, TOLERATED AMBULATION FEW STEPS INSIDE ROOM, SAT ON CHAIR FOR AT LEAST COUPLE OF HOURS, TOLERATED WELL. HAD A LARGE SOFT, UNFORMED BOWEL MOVEMENT ON BEDPAN. HAD HD TODAY, 2 LITERS OF FLUID OUT PER HD RN. SWABBED FOR R/O COVID REQUIRED FOR OUTPATIENT DIALYSIS. MAINTAINED ON DROPLET PRECAUTION.
--- NOTE | 2020-02-15 19:30 | NUR ---
RECEIVED REPORT FROM RN DAYSHIFT NURSE AT BEDSIDE FOR CONTINUITY OF CARE, PT IN STABLE CONDITION.
[2020-02-15 20:00] VITALS: BP 147/71
--- NOTE | 2020-02-15 20:20 | NUR ---
PT IN BED AOX3 HE IS AWAKE RESPIRATIONS EVEN AND UNLABORED ON ROOM AIR. PT HAS LEFT SIDED QUINTAN CATH INTACT AND ASYMPTOMATIC. PT ALSO HAS [place] CATHETER INTACT AND DRAINING YELLOW URINE. RIGHT UPPER PICC LINE INTACT AND RUNNING TO KVO. DIFLUCAN COMPLETED. PT GIVEN DUE MEDS OF LIPITOR , LOPRESSOR AND MUCINEX. MEDICATIONS EXPLAINED AT BEDSIDE INCLUDING SIDE EFFECTS. PT VERBELIZED UNDERSTANDING. V/S FOLLOWS: T 99 P 109 R 19 B/P 147/71 02 97% ON ROOM AIR. ALL REQUESTS ATTENDED BY STAFF AND ALL FALLS AND DROPLET PRECAUTIONS IN PLACE.
[2020-02-15] MEDS: ATORVASTATIN 20 MG TAB PO SCH (21:12)
[2020-02-15] MEDS ORDERED: CRUSHER, PILL MC ONE (21:15)
[2020-02-15] MEDS: FLUCONAZOLE 200 MG/NS PREMIX 100 ML IV SCH (21:28)
--- NOTE | 2020-02-15 22:30 | NUR ---
PT IN BED RESTING , NO S/S OF PAIN OR DISTRESS NOTED. R UPPER PIC LINE INTACT AND RUNNING N/S TO KVO. [place] CATHETER INTACT AND DRAINING YELLOW URINE. ALL FALLS AND DROPLET PRECAUTIONS IN PLACE.
[2020-02-16] VITALS: BP 129/74
--- NOTE | 2020-02-16 00:30 | NUR ---
PT IN BED WITH EYES CLOSED BUT AROUSABLE TO NAME AND LIGHT TOUCH. PT DENIES ANY PAIN OR DISTRESS. [place] CATHETER IN PLACE AND CONTINUES TO DRAIN YELLOW URINE. RIGHT UPPER PICC LINE INTACT AND RUNNING TO KVO. PT QUINTAN CATHETER INTACT AND ASYMPTOMATIC. V/S FOLLOWS: T 99.1 P 95 R 18 B/P 129/74 02 97%, PT DECLINED ANY COOLING MEASURES AT THIS TIME. ALL DROPLET AND FALLS PRECAUTIONS IN PLACE.
[2020-02-16 04:00] VITALS: BP 137/70
--- NOTE | 2020-02-16 04:30 | NUR ---
PT IN BED RESTING WITH EYES CLOSED NO C/O OR DISTRESS NOTED. V/S FOLLOWS; T 98.8 P 94 R 18 B/P 137/70 02 95% NO C/O VOICED AND ALL DROPLET AND FALLS PRECAUTIONS IN PLACE.
--- NOTE | 2020-02-16 06:00 | NUR ---
PT IN BED AOX 2-3,WITH EYES CLOSED IN BED. PT HAS NO C/O VOICED. IV FLUIDS INTACT AND RUNNING TO KVO AT LEFT UPPER PICC LINE. [place] CATHETER INTACT. ALL CONTACT AND FLUIDS RUNNING ORDERED.
[2020-02-16] MEDS: ALBUTEROL SULFATE/IPRATROPIU 3 ML SOL IH SCH ×3 (06:30→19:49)
--- NOTE | 2020-02-16 07:12 | NUR ---
POC TO BE ENDORSED TO AM SHIFT.
--- NOTE | 2020-02-16 07:30 | NUR ---
RECEIVED PT ON BED AAOX4. NO SOB NOTED. NO C/O PAIN AT THIS TIME. WITH RADHA PICC LINE PATENT AND INTACT. WITH LEFT IJ SKYE CATH, DRESSING CLEAN, DRY AND INTACT. CHEST DIMINISHED AIR ENTRY TO THE BASES. ABDOMEN SOFT, BOWEL SOUNDS PRESENT. NO EDEMA NOTED. WITH [place] DRAINING MODERATE AMOUNTS OF SLIGHTLY CLOUDY URINE. INSTRUCTED PT TO CALL FOR ASSISTANCE, CALL LIGHT WITHIN REACH, PT VERBALIZED UNDERSTANDING.
[2020-02-16 08:00] VITALS: BP 144/70
[2020-02-16] MEDS: guaiFENesin 600 MG TABER PO SCH ×2 (08:53→21:52)
[2020-02-16] MEDS: ASPIRIN 81 MG TAB.CHEW PO SCH (08:54)
[2020-02-16] MEDS: METOPROLOL 25 MG TAB PO SCH ×2 (08:54→21:52)
[2020-02-16 09:57] LABS: BASOPHILS # (AUTO) 0.1 K/uL (0.00-0.22); BASOPHILS % (AUTO) 0.4 % (0.0-2.0); EOSINOPHILS # (AUTO) 0.1 K/uL (0-0.4); EOSINOPHILS % (AUTO) 0.5 % (0.0-4.0); HEMATOCRIT 25.1 % (36-52); HEMOGLOBIN 8.4 g/dL (12.0-18.0); LYMPHOCYTES % (AUTO) 5.7 % (20.5-51.1); MEAN CORPUSCULAR HEMOGLOBIN 30 pg (27-31); MEAN CORPUSCULAR HGB CONC 33 g/dL (33-37); MEAN CORPUSCULAR VOLUME 88.8 fL (80-94); MONOCYTES # (AUTO) 0.8 K/uL (0.8-1.0); MONOCYTES % (AUTO) 4.3 % (1.7-9.3); NEUTROPHILS # (AUTO) 16.1 K/uL (1.8-7.7); NEUTROPHILS % (AUTO) 89.1 % (42.2-75.2); PLATELET COUNT (AUTO) 263 K/uL (140-450); RED BLOOD CELL COUNT(AUTO) 2.82 MIL/uL (4.20-6.10); RED CELL DISTRIBUTION WIDTH 15.1 % (11.6-13.7)
[2020-02-16 10:14] LABS: ANION GAP 14.7 (8-16); CARBON DIOXIDE 26.8 mmol/L (21-32); POTASSIUM 3.5 mmol/L (3.5-5.1)
[2020-02-16 10:19] LABS: CREATININE 4.3 mg/dL (0.6-1.3)
[2020-02-16 12:00] VITALS: BP 134/74
[2020-02-16] MEDS ORDERED: VANCOMYCIN 500 MG in DEXTROSE 5% 100 ML IV SCH (14:00)
--- NOTE | 2020-02-16 15:10 | NUR ---
02/16/2020 RD FOLLOW UP COMPLETED PLEASE REFER TO NUTRITION PROGRESS NOTE UNDER CARE ACTIVITY FOR ESTIMATED NUTRITION NEEDS. RD RECOMMENDATIONS: 1. CONTINUE CURRENT DIET TOLERATED 2. CONTINUE NEPRO BID FOR NUTRITION SUPPORT 3. ENCOURAGE INCREASED PO INTAKE 4. RD TO FOLLOW-UP IN 2-3 DAYS; PATIENT IS HIGH RISK. ABBIE POSADA MBA, RD
[2020-02-16 16:00] VITALS: BP 143/81
[2020-02-16] MEDS: CEFEPIME 1,000 MG in DEXTROSE 5% 50 ML IV SCH (17:07)
--- NOTE | 2020-02-16 19:15 | NUR ---
PT AWAKE. NO SOB NOTED. NO SIGNS OF PAIN AT THIS TIME. WILL ENDORSE TO NEXT SHIFT NURSE FOR CONTINUITY OF CARE.
[2020-02-16 20:00] VITALS: BP 144/81
--- NOTE | 2020-02-16 20:08 | NUR ---
RECEIVED PT IN BED AAOX4, AWAKE RESPIRATIONS EVEN AND UNLABORED ON ROOM AIR. W/LEFT SKYE CATH INTACT, AND ASYMPTOMATIC. PT ALSO HAS [place] CATHETER INTACT AND DRAINING YELLOW URINE. RIGHT UPPER PICC LINE INTACT AND RUNNING TO [facility]. PLACED ON A LOW BED. FALL RISK IN PLACE. CALL LIGHT WITHIN REACH. Addendum: 02/17/20 at 0112 by Tricia Garrett RN AMEND TO 1915
--- NOTE | 2020-02-16 20:09 | NUR ---
PT CHECKED. NO TX GIVEN. PT IS PUI. PT IS ON RA. VITAL SIGNS STABLE. WILL CONT TO MONITOR
--- NOTE | 2020-02-16 20:13 | NUR ---
CHECKED OF PATIENT, SLEEPING, NO SIGNS OF RESPIRATORY DISTRESS, NO SIGNS OF PAIN. WILL CHECK PATIENT FREQUENTLY
[2020-02-16] MEDS: ATORVASTATIN 20 MG TAB PO SCH (21:50)
[2020-02-17] VITALS: BP 145/81
--- NOTE | 2020-02-17 01:14 | NUR ---
PT STILL SLEEPING NO SIGNS OF RESPIRATORY DISTRESS, NO SIGNS OF PAIN
--- NOTE | 2020-02-17 01:22 | NUR ---
PT ABLE TO TURN FROM SIDE TO SIDE, NO SIGNS OF DISTRESS
[2020-02-17 04:00] VITALS: BP 141/89
--- NOTE | 2020-02-17 06:00 | NUR ---
CHANGED THE L UPPER ARM PICCLINE DRESSING ASEPTICALLY
[2020-02-17] MEDS: ALBUTEROL SULFATE/IPRATROPIU 3 ML SOL IH SCH (07:00)
--- NOTE | 2020-02-17 07:00 | NUR ---
BLOOD DRAW FROM THE LEFT UPPER ARM LEBRON, OBSEVED ASEPTIC TECHNIQUE WHEN DRAWING
--- NOTE | 2020-02-17 07:25 | NUR ---
RECEIVED PATIENT FROM NIGHT NURSE. PATIENT IS AWAKE, ALERT, ORIENTED X4. RADHA PICC AND RIJ NOTED INTACT AND PATENT. RESP EVEN AND UNLABORED ON ROOM AIR. SKIN WARM TO TOUCH. [place] NOTED. DENIES OF PAIN AT THIS TIME. NO NOTED DISTRESS. PLAN OF CARE DISCUSSED WITH PATIENT, PATIENT VERBALIZED UNDERSTANDING. SAFETY MEASURE IN PLACE. CALL LIGHT WITHIN REACH. WILL CONTINUE TO MONITOR.
[2020-02-17 07:26] LABS: BASOPHILS # (AUTO) 0.1 K/uL (0.00-0.22); BASOPHILS % (AUTO) 0.5 % (0.0-2.0); EOSINOPHILS # (AUTO) 0.1 K/uL (0-0.4); EOSINOPHILS % (AUTO) 0.6 % (0.0-4.0); HEMATOCRIT 22.6 % (36-52); HEMOGLOBIN 7.6 g/dL (12.0-18.0); LYMPHOCYTES # (AUTO) 1.2 K/uL (2.0-11.5); MEAN CORPUSCULAR HEMOGLOBIN 30 pg (27-31); MEAN CORPUSCULAR HGB CONC 34 g/dL (33-37); MEAN CORPUSCULAR VOLUME 88.4 fL (80-94); MONOCYTES % (AUTO) 6.2 % (1.7-9.3); NEUTROPHILS # (AUTO) 14.3 K/uL (1.8-7.7); PLATELET COUNT (AUTO) 330 K/uL (140-450); RED BLOOD CELL COUNT(AUTO) 2.56 MIL/uL (4.20-6.10); WHITE BLOOD COUNT (AUTO) 16.7 K/uL (4.8-10.8)
[2020-02-17 07:53] LABS: ANION GAP 15.5 (8-16); CARBON DIOXIDE 26.1 mmol/L (21-32); POTASSIUM 3.6 mmol/L (3.5-5.1)
[2020-02-17 08:00] VITALS: BP 135/79
[2020-02-17 09:29] LABS: NEUTROPHILS % (AUTO) 85.7 % (42.2-75.2)
[2020-02-17 09:43] LABS: CREATININE 4.6 mg/dL (0.6-1.3)
[2020-02-17] MEDS: guaiFENesin 600 MG TABER PO SCH ×2 (09:47→20:10)
[2020-02-17] MEDS: METOPROLOL 25 MG TAB PO SCH ×2 (09:47→20:10)
[2020-02-17] MEDS: ASPIRIN 81 MG TAB.CHEW PO SCH (09:47)
--- NOTE | 2020-02-17 09:51 | NUR ---
MORNING ROUTINE MEDICATIONS GIVEN ORDERED. PATIENT TOLERATED WELL. VITALS WNL. RESP EVEN AND UNLABORED ON ROOM AIR. PATIENT HAD A BOWEL MOVEMENT, AND CARE PROVIDED. DIALYSIS NURSE WAS CONTACTED FOR ETA FOR HD SCHEDULED TODAY. PER DIALYSIS NURSE, SHE WILL CONTACT DR MCINTYRE TO RESCHEDULE THE HD FOR TOMORROW. CALL LIGHT WITHIN REACH. WILL CONTINUE TO MONITOR.
[2020-02-17 12:00] VITALS: BP 135/79
--- NOTE | 2020-02-17 12:25 | NUR ---
PATIENT IS SLEEPING COMFORTABLY IN BED. CAN BE AROUSABLE. FOLLOW COMMANDS. RESP EVEN AND UNLABORED ON ROOM AIR. DENIES OF PAIN AT THIS TIME. PATIENT INQUIRED ABOUT HIS COVID TESTING AND PATIENT WAS MADE AWARE OF NEGATIVE RESULT. VITALS WNL. SAFETY MEASURES IN PLACE. WILL CONTINUE TO MONITOR.
--- NOTE | 2020-02-17 14:35 | NUR ---
BEDSIDE CARE GIVEN. PATIENT RESTING COMFORTABLY IN BED. RESP EVEN AND UNLABORED ON ROOM AIR. CALL LIGHT WITHIN REACH. WILL CONTINUE TO MONITOR.
[2020-02-17 16:00] VITALS: BP 149/89
[2020-02-17] MEDS: CEFEPIME 1,000 MG in DEXTROSE 5% 50 ML IV SCH (16:16)
--- NOTE | 2020-02-17 17:36 | NUR ---
PATIENT IS SITTING UP IN BED WATCHING TV. RESP EVEN AND UNLABORED. HD STARTED. CALL LIGHT WITHIN REACH. WILL CONTINUE TO MONITOR.
--- NOTE | 2020-02-17 19:21 | NUR ---
HD IN PROGRESS. ENDORSED PATIENT TO NIGHT NURSE. PATIENT IN STABLE CONDITION.
--- NOTE | 2020-02-17 19:25 | NUR ---
RECEIVED REPORT FROM AM NURSE. HD IS IN PROCESS. PATIENT IS TOLERATING IT WELL. PATIENT IS A/OX 4, ON ROOM AIR, SKIN IS WARM AND DRY TO TOUCH. PER CONNIE SCRATCHER, PATIENT HAS A TEMP OF 101. MEDICATED ORDERED. CALL LIGHT IS WITHIN REACH. SAFETY PRECAUTIONS IN PLACE. WILL CONTINUE TO MONITOR.
[2020-02-17] MEDS: ACETAMINOPHEN 325 MG TAB PO PRN (19:45)
[2020-02-17 20:00] VITALS: BP 152/91
[2020-02-17] MEDS: ATORVASTATIN 20 MG TAB PO SCH (20:14)
--- NOTE | 2020-02-17 21:05 | NUR ---
ADMINISTERED SCHEDULED MEDICATION. PATIENT TOLERATED WELL. WILL CONTINUE TO MONITOR.
--- NOTE | 2020-02-17 23:20 | NUR ---
PATIENT IS SLEEPING. NO SIGNS OF DISTRESS NOTED. WILL CONTINUE TO MONITOR.
[2020-02-18] VITALS: BP 131/75
--- NOTE | 2020-02-18 01:15 | NUR ---
PATIENT IS SLEEPING. VISIBLE CHEST RISE NOTED. WILL CONTINUE TO MONITOR.
--- NOTE | 2020-02-18 03:06 | NUR ---
PATIENT CALLED FOR BEDPAN. MARBLE RUBBER AT BEDSIDE TO ASSIST THE PATIENT. NO SIGNS OF DISTRESS NOTED. WILL CONTINUE TO MONITOR.
[2020-02-18 04:00] VITALS: BP 136/85
--- NOTE | 2020-02-18 05:16 | NUR ---
PATIENT SLEEPING IN BED. VISIBLE CHEST RISE NOTED. WILL CONTINUE TO MONITOR.
--- NOTE | 2020-02-18 07:17 | NUR ---
RECEIVED REPORT FROM NIGHT NURSE. PT IS AOX4, VERBAL, ABLE TO MAKE NEEDS KNOWN, NO C/O PAIN, NO SOB, RESPIRATIONS ARE EVEN AND UNLABORED, AFEBRILE. SKIN IS INTACT. WITH RADHA PICC LINE AND LEFT IJ DIALYSIS CATH. SAFETY PRECAUTIONS IN PLACE. CALL LIGHT WITHIN REACH. WILL CONTINUE TO MONITOR
[2020-02-18 07:55] LABS: BASOPHILS # (AUTO) 0.2 K/uL (0.00-0.22); BASOPHILS % (AUTO) 0.9 % (0.0-2.0); EOSINOPHILS # (AUTO) 0.1 K/uL (0-0.4); EOSINOPHILS % (AUTO) 0.8 % (0.0-4.0); HEMATOCRIT 24.4 % (36-52); HEMOGLOBIN 8.2 g/dL (12.0-18.0); LYMPHOCYTES # (AUTO) 1.2 K/uL (2.0-11.5); LYMPHOCYTES % (AUTO) 7.2 % (20.5-51.1); MEAN CORPUSCULAR HEMOGLOBIN 30 pg (27-31); MEAN CORPUSCULAR HGB CONC 34 g/dL (33-37); MEAN CORPUSCULAR VOLUME 89.4 fL (80-94); NEUTROPHILS # (AUTO) 14.1 K/uL (1.8-7.7); NEUTROPHILS % (AUTO) 85.1 % (42.2-75.2); PLATELET COUNT (AUTO) 354 K/uL (140-450); RED BLOOD CELL COUNT(AUTO) 2.73 MIL/uL (4.20-6.10); RED CELL DISTRIBUTION WIDTH 15.1 % (11.6-13.7); WHITE BLOOD COUNT (AUTO) 16.6 K/uL (4.8-10.8)
[2020-02-18 08:00] VITALS: BP 141/85
[2020-02-18] MEDS: guaiFENesin 600 MG TABER PO SCH (08:14)
[2020-02-18] MEDS: ASPIRIN 81 MG TAB.CHEW PO SCH (08:14)
[2020-02-18] MEDS: METOPROLOL 25 MG TAB PO SCH (08:14)
[2020-02-18] MEDS: FLUCONAZOLE 200 MG/NS PREMIX 100 ML IV SCH (08:30)
[2020-02-18 08:46] LABS: ANION GAP 14.2 (8-16); CARBON DIOXIDE 26.6 mmol/L (21-32); CREATININE 3.8 mg/dL (0.6-1.3); POTASSIUM 3.8 mmol/L (3.5-5.1)
--- NOTE | 2020-02-18 08:50 | NUR ---
DUE MORNING MEDS GIVEN. TOLERATED PO MEDS WELL
[2020-02-18 09:11] LABS: ANTI-GLUMERULAR BASE MEM AB QN 3 units (0-20)
[2020-02-18] MEDS ORDERED: ASPI-1822 PO (10:28)
[2020-02-18] MEDS ORDERED: VANC125C5 PO (10:28)
[2020-02-18] MEDS ORDERED: METO25TA PO (10:28)
[2020-02-18] MEDS ORDERED: FLUC150T PO (10:28)
[2020-02-18 12:00] VITALS: BP 135/79
[2020-02-18] MEDS ORDERED: VANCOMYCIN 750 MG in DEXTROSE 5% 250 ML IV SCH (12:00)
--- NOTE | 2020-02-18 12:30 | NUR ---
DISCHARGE INSTRUCTION AND PRESCRIPTION GIVEN TO PT AND PT'S NEPHEW AMY. DIALYSIS CATH CARE INSTRUCTED. INFORMED ABOUT DIALYSIS SCHEDULE AT [facility]. FAMILY WILL DEEP WELL CONTRACTOR PT AT 3PM
--- NOTE | 2020-02-18 14:44 | NUR ---
REMOVED PICC LINE AND [place] ORDERED. LUMEN INTACT
--- NOTE | 2020-02-18 16:00 | NUR ---
PICKED UP BY FAMILY VIA PRIVATE VEHICLE. STABLE UPON DISCHARGE
== END 2020-02-18 16:25 | disposition home or self-care (01) | DRG 720 ==
LOC: MED 09:30 → MIC 11:43 → MTU 02-09 22:42
PROC: 02HV33Z Insertion of Infusion Device into Superior Vena Cava, Percutaneous Approach (ICD-10-PCS; 2020-02-08)
PROC: B548ZZA Ultrasonography of Superior Vena Cava, Guidance (ICD-10-PCS; 2020-02-08)
PROC: 5A1D70Z Performance of Urinary Filtration, Intermittent, Less than 6 Hours Per Day (ICD-10-PCS; principal; 2020-02-09)
PROC: 02HV33Z Insertion of Infusion Device into Superior Vena Cava, Percutaneous Approach (ICD-10-PCS; 2020-02-09)
PROC: B548ZZA Ultrasonography of Superior Vena Cava, Guidance (ICD-10-PCS; 2020-02-09)
PROC: 5A1D70Z Performance of Urinary Filtration, Intermittent, Less than 6 Hours Per Day (ICD-10-PCS; 2020-02-10)
PROC: 5A1D70Z Performance of Urinary Filtration, Intermittent, Less than 6 Hours Per Day (ICD-10-PCS; 2020-02-11)
PROC: 5A1D70Z Performance of Urinary Filtration, Intermittent, Less than 6 Hours Per Day (ICD-10-PCS; 2020-02-13)
PROC: 02PYX3Z Removal of Infusion Device from Great Vessel, External Approach (ICD-10-PCS; 2020-02-13)
PROC: 02HV33Z Insertion of Infusion Device into Superior Vena Cava, Percutaneous Approach (ICD-10-PCS; 2020-02-13)
PROC: B548ZZA Ultrasonography of Superior Vena Cava, Guidance (ICD-10-PCS; 2020-02-13)
PROC: 5A1D70Z Performance of Urinary Filtration, Intermittent, Less than 6 Hours Per Day (ICD-10-PCS; 2020-02-15)
PROC: 5A1D70Z Performance of Urinary Filtration, Intermittent, Less than 6 Hours Per Day (ICD-10-PCS; 2020-02-17)
DX: A41.9 Sepsis, unspecified organism (principal); J96.01 Acute respiratory failure with hypoxia; N17.0 Acute kidney failure with tubular necrosis; E43 Unspecified severe protein-calorie malnutrition; R65.20 Severe sepsis without septic shock; N39.0 Urinary tract infection, site not specified; N18.9 Chronic kidney disease, unspecified; K75.9 Inflammatory liver disease, unspecified; I50.43 Acute on chronic combined systolic (congestive) and diastolic (congestive) heart failure; I13.0 Hypertensive heart and chronic kidney disease with heart failure and stage 1 through stage 4 chronic kidney disease, or unspecified chronic kidney disease; G93.41 Metabolic encephalopathy; I21.A1 Myocardial infarction type 2; G93.89 Other specified disorders of brain; G90.9 Disorder of the autonomic nervous system, unspecified; I47.2 Ventricular tachycardia; E87.6 Hypokalemia; I48.91 Unspecified atrial fibrillation; E83.39 Other disorders of phosphorus metabolism; D69.6 Thrombocytopenia, unspecified; I31.3 Pericardial effusion (noninflammatory); K76.89 Other specified diseases of liver; E66.9 Obesity, unspecified; R74.0 Nonspecific elevation of levels of transaminase and lactic acid dehydrogenase [LDH]; Z20.828 Contact with and (suspected) exposure to other viral communicable diseases; Z91.19 Patient's noncompliance with other medical treatment and regimen; Z68.32 Body mass index [BMI] 32.0-32.9, adult; Z03.818 Encounter for observation for suspected exposure to other biological agents ruled out
CPT/HCPCS: 36415; 36600; 70450; 71045; 71275; 76705; 80048; 80053; 80202; 80305; 81001; 82140; 82150; 82436; 82550; 82570; 82728; 82803; 83036; 83516; 83605; 83615; 83625; 83690; 83735; 83880; 84100; 84165; 84300; 84436; 84443; 84484; 85025; 85379; 85384; 85610; 85651; 85730; 86038; 86060; 86140; 86160; 86704; 86706; 86708; 86709; 86803; 86886; 86900; 86901; 87040; 87045; 87070; 87081; 87086; 87177; 87340; 87420; 87804; 89055; 90935; 93005; 93880; 94640; 96361; 96365; 97110; 97112; 97116; 97161-GP; 97530; 99291; C1751; J0692; J1450; J1642; J1644; J2001; J2405; J2543; J3370; J3475; J3480; J3490; J7030; J7042; J7060; J7644; Q0092; Q9967; U0003-CS

== ENCOUNTER 2020-04-06 10:48 | Emergency (ER) | payer MEDICAID, SELFPAY ==
[~2020-04-06] VITALS: Ht 162.6 cm; Wt 80.8 kg
[~2020-04-06 10:48] MED LIST: ASPI-1822 PO; FLUC150T PO; METO25TA PO; VANC125C5 PO
[2020-04-06 11:02] VITALS: BP 138/90
[2020-04-06] MEDS ORDERED: BACITRACIN OINT 500 UNITS/GM PKT TP ONE (11:30)
[2020-04-06 12:33] VITALS: BP 132/84
== END 2020-04-06 12:31 | disposition home or self-care (01) ==
LOC: MED 10:48
DX: S40.811A Abrasion of right upper arm, initial encounter (principal); S80.811A Abrasion, right lower leg, initial encounter; I12.0 Hypertensive chronic kidney disease with stage 5 chronic kidney disease or end stage renal disease; N18.6 End stage renal disease; V49.9XXA Car occupant (driver) (passenger) injured in unspecified traffic accident, initial encounter; Y93.89 Activity, other specified; Y92.89 Other specified places as the place of occurrence of the external cause; Y99.8 Other external cause status
CPT/HCPCS: 73130; 73562; 90471; 90715; 99284